=== PATIENT | female | born 1965 | race Caucasian/White ===

== ENCOUNTER 2018-09-28 09:50 | Day surgery (SDC) | payer OTHER, SELFPAY ==
[2018-09-28 10:42] VITALS: BP 111/77; PULSE 78; RESP 16; TEMP 37.1; O2SAT 100; BMI 26.6
[2018-09-28] MEDS: SODIUM CHLORIDE 0.9% 1,000 ML 200 ML IV (11:18)
--- NOTE | 2018-09-28 12:21 | PM.HP.1 ---
History of Present Illness Date Patient Seen: 09/28/18 Time Patient Seen: 12:09 Chief complaint: [id number] SCREENING COLONOSCOPY Narrative: The patient is woman here for screening colonoscopy. She has turned 52. No family history of colon cancer. No blood in her stool. Patient History Medical History (Updated 09/28/18 @ 12:23 by Sebastian Davila MD) Joon's thyroiditis (Chronic) Hypothyroid (Chronic) Surgical History (Updated 09/28/18 @ 12:24 by Sebastian Davila MD) H/O blepharoplasty (Resolved) Social History household members: none Family & Social History Social History: household members none Meds Home Medications Medication Instructions Recorded Confirmed Type Myrbetriq 50 mg PO DAILY #0 10/27/16 09/28/18 History [BCP] #0 10/27/16 History levothyroxine [Synthroid] 100 mcg PO DAILY #0 10/27/16 09/28/18 History bupropion HCl 300 mg PO QAM 09/28/18 09/28/18 History norethindrone ac-eth estradiol 1 tab PO DAILY 09/28/18 09/28/18 History [Loestrin 1.5/30 (21)] Allergies Allergy/AdvReac Type Severity Reaction Status Date / Time No Known Drug Allergies Allergy Verified 09/28/18 07:53 Review of Systems Review of Systems All systems reviewed & are unremarkable except as noted in HPI and below Exam Vital Signs (past 8 hours): - 09/28/18 10:42 Temperature 98.8 F Pulse Rate 78 Respiratory Rate 16 Blood Pressure 111/77 Pulse Oximetry 100 Oxygen Delivery Method Room Air Narrative Exam Narrative: Pleasant cooperative patient no apparent distress. Lungs are clear to auscultation. No rales or rhonchi. Heart regular rate and rhythm no murmur gallop. Abdomen is soft nontender without mass. No obvious hernias. Patient is alert and oriented x3. Assessment & Plan Assessment & Plan narrative: The patient for a screening colonoscopy. I have discussed the procedure with them. Risks of bleeding, perforation which would necessitate major operation, failure to find remove all lesions, the potential tattoo were all discussed. All questions were answered. She wished to proceed.
--- NOTE | 2018-09-28 12:24 | PM.PREOP ---
Pre-operative Note Interval Note History & Physical reviewed/Exam performed by Physician: Yes Changes to H&P: No ASA Class (for procedural sedation): II
[2018-09-28] MEDS: MIDAZOLAM 5 MG/5 ML VIAL IV (13:06)
[2018-09-28] MEDS: fentaNYL 250 MCG/5 ML INJ IV (13:07)
--- NOTE | 2018-09-28 13:15 | PM.OP.ENDO ---
Operative Date/Time/Diagnoses Date of procedure: 09/28/18 Time of procedure: 13:15 Pre-op diagnosis: Screening examination Post-op diagnosis: same (A few sigmoid diverticuli noted) Procedure & Clinicians Study performed: Colonoscopy Same procedure as scheduled: Yes Indications: Screening Surgeon: Sebastian Davila Procedure Notes SCOAP/Timeout: Performed Procedure in detail: The patient was placed in the left lateral decubitus position and underwent IV sedation directed by the surgeon consisting of fentanyl and Versed. Digital exam was normal. The scope was inserted and advanced through the rectum into the sigmoid, descending, transverse, and ascending colon. A few sigmoid diverticula were noted. There were minimal in number. The cecum was reached identified by the ileocecal valve and the appendiceal opening. The ileocecal valve was successfully cannulated. The terminal ileum was normal in appearance. The scope was gradually brought out. No Polyps were found. The scope ultimately was retroflexed in the rectum. The appearance was normal. The scope was removed and the patient tolerated the procedure well. Prep was excellent Scope withdrawal time: 8.5 minute Sedation minutes: 27 Findings: diverticulosis (A few sigmoid diverticuli) Specimen(s): none sent Complications: none Recommendations: Colonscopy in 10 years Follow up: as needed Disposition: PACU
[2018-09-28 13:17] VITALS: BP 102/62; PULSE 77; RESP 16; TEMP 36.8; O2SAT 98
[2018-09-28 13:22] VITALS: BP 105/64; PULSE 80; RESP 12; O2SAT 97
[2018-09-28 13:27] VITALS: BP 106/67; PULSE 79; RESP 14; TEMP 36.9; O2SAT 97
[2018-09-28 13:32] VITALS: BP 98/66; PULSE 78; RESP 15; TEMP 36.4; O2SAT 98
[2018-09-28 13:58] VITALS: BP 101/68; PULSE 62; RESP 15; TEMP 36.5; O2SAT 98
== END 2018-09-28 14:02 | disposition home or self-care (01) ==
PROVIDERS: PCP Nurse Practitioner Family; Visit Provider Specialist
PROC: 0DJD8ZZ Inspection of Lower Intestinal Tract, Via Natural or Artificial Opening Endoscopic (ICD-10-PCS; CPT 45378; principal; 2018-09-28 09:45)
DX: Z12.11 Encounter for screening for malignant neoplasm of colon (principal); K57.30 Diverticulosis of large intestine without perforation or abscess without bleeding; E06.3 Autoimmune thyroiditis
CPT/HCPCS: 45378; 99152; 99153; J2250; J3010

== ENCOUNTER → 2018-11-08 09:06 | Outpatient (CLI) | payer OTHER, SELFPAY ==
--- NOTE | 2018-11-08 | DI.MRI.S_ITS ---
PROCEDURE: MR HIP LT WO CON INDICATIONS: Pain in unspecified hip TECHNIQUE: Noncontrast coronal T1 spin echo and STIR through the bony pelvis. Coronal and axial T2 fast spin echo with fat saturation, sagittal T1 spin echo, and oblique axial T2 fast spin echo with fat saturation through the hip. COMPARISON: [facility], MR, MR HIP RT WO CON, 11/08/2018, 9:25. FINDINGS: Image quality: Diagnostic. Bones and joints: No acute fracture, dislocation, suspicious osseous lesion, or evidence of avascular necrosis is appreciated involving the osseous structures of the left hip. Mild degenerative changes of the left hip are present with heterogeneity and mild irregularity of the hyaline articular cartilage along the superior margin of the joint space. Mild degenerative cystic changes present along the anterior aspect of the femoral head. The alpha angle of the left femoral head measures less than 55?. There is a small hip effusion. The remainder of the imaged osseous structures of the pelvis demonstrate no fractures or suspicious abnormalities. Labrum: Evaluation of the left acetabular labrum is difficult without intra-articular contrast. No definitive labral tears are appreciated. No paravertebral cysts are identified. Tendons and ligaments: Marker partial-thickness tearing is present involving the distal left gluteus medius tendon. There is low-grade partial-thickness tearing involving the distal left gluteus minimus tendon. Moderate tendinopathy involving both tendons is present. There is a small amount of fluid contained within the subacromial subdeltoid bursa. There also is fluid extending along the gluteus medius myotendinous junction. The proximal left hamstrings tendons are within normal limits. The distal left iliopsoas tendons also are within normal limits. The ligamentum teres appears intact where visualized. Increased signal involving this ligament may represent a ligamentous sprain. Soft tissues: Visualized muscles demonstrate normal bulk and internal signal. Quadratus femoris muscle demonstrates no internal edema to suggest ischiofemoral impingement. The proximal sciatic neurovascular bundle appears normal adjacent to the hamstring tendons. No free pelvic fluid. Bladder wall thickness is normal. Genitourinary structures and bowel loops appear normal where visualized. Incidental note is made of small uterine fibroids, not well characterized. IMPRESSION: 1. Mild degenerative changes of the left hip. 2. Low to moderate grade partial-thickness tearing of the distal left gluteus medius and gluteus minimus tendons with corresponding tendinopathy. There may be mild delamination along the gluteus medius myotendinous junction. 3. Probable sprain of the ligamentum teres. 4. No displaced left acetabular labral tears. Dictated by: Italo Alberto M.D. on 11/08/2018 at 16:00 Approved by: Italo Alberto M.D. on 11/08/2018 at 16:10
--- NOTE | 2018-11-08 | DI.MRI.S_ITS ---
PROCEDURE: MR HIP RT WO CON INDICATIONS: Pain in unspecified hip TECHNIQUE: Noncontrast coronal T1 spin echo and STIR through the bony pelvis. Coronal and axial T2 fast spin echo with fat saturation, sagittal T1 spin echo, and oblique axial T2 fast spin echo with fat saturation through the hip. COMPARISON: None. FINDINGS: Image quality: Diagnostic. Bones and joints: No acute fracture, dislocation, or suspicious osseous lesion is identified involving the osseous structures of the right hip. There is no evidence of avascular necrosis. Irregularity of the hyaline articular cartilage along the superior margin of the joint space is present. There also is irregularity along the medial aspect of the femoral head articular surface with an area of cartilaginous fissuring. No large cartilaginous defects are identified. There is a small hip effusion. The alpha angle of the right femoral head measures less than 55?. The remainder of the included osseous structures of the pelvis demonstrate no fractures or suspicious osseous lesions. Labrum: Evaluation of the right acetabular labrum is difficult without intra-articular contrast. However, there is blunting along the free edge of the anterosuperior aspect of the labrum with increased signal at the expected location of the labral cartilaginous junction, suggesting a small anterosuperior labral tear likely extending from the 12 o'clock position to the 10 o'clock position. Additional heterogeneity through the posterosuperior labrum may represent additional areas of mild labral tearing. No detached labral fragments are appreciated. There are no paravertebral cysts. Tendons and ligaments: There is low-grade partial-thickness tearing and tendinopathy involving the distal margin of the right gluteus medius tendon. A similar appearance is identified involving the right gluteus minimus tendon. There is fluid contained within the greater trochanteric bursa. Increased signal is noted involving the proximal right hamstrings tendons. The distal iliopsoas tendons are intact and otherwise unremarkable. The ligamentum teres appears intact where visualized. Soft tissues: Visualized muscles demonstrate normal bulk and internal signal. Quadratus femoris muscle demonstrates no internal edema to suggest ischiofemoral impingement. The proximal sciatic neurovascular bundle appears normal adjacent to the hamstring tendons. No free pelvic fluid. Bladder wall thickness is normal. Genitourinary structures and bowel loops appear normal where visualized. Small uterine fibroids appear to be present, but are not well characterized along the anterior aspect of the myometrium. IMPRESSION: 1. Mild degenerative changes of the right hip. No fractures. 2. There is at least a small anterosuperior right acetabular labral tear. Additional posterosuperior labral tearing may be present. 3. Moderate grade partial-thickness tearing and tendinopathy involving the distal right gluteus medius and gluteus minimus tendons with corresponding tendinopathy and fluid contained within the greater trochanteric bursa. Please correlate clinically for possible greater trochanteric pain syndrome. 4. Mild proximal right hamstrings tendinopathy. Dictated by: Italo Alberto M.D. on 11/08/2018 at 15:51 Approved by: Italo Alberto M.D. on 11/08/2018 at 16:00
--- NOTE | 2018-11-08 | DI.MRI.S_ITS ---
PROCEDURE: MR PELVIS WO CON INDICATIONS: Pain in unspecified hip TECHNIQUE: Noncontrast axial and oblique coronal T1 spin echo and STIR through the sacroiliac joints. COMPARISON: None. FINDINGS: Image quality: Excellent. Bones: The sacroiliac joints appear intact, and free of inflammatory change. Note is made of lower lumbosacral spine moderate degenerative facet osteoarthritis with ligamentum flavum hypertrophy and bilateral mild to moderate foraminal stenosis at L4-5. A disc herniation is not associated.. There is also moderate facet osteoarthritis at L5-S1. No adjacent bone marrow edema to suggest active sacroiliitis. No bony ankylosis. No suspicious marrow space occupying lesions. Soft tissues: No presacral masses. Rectum appears normal in caliber and wall thickness. No pathologic free pelvic fluid. IMPRESSION: No trauma found. There is degenerative facet osteoarthritis that appears slightly greater on the left than the right at L4-5 and symmetric on the right in the left at L5-S1 without associated disc herniation. Nerve root impingement may be present as a result. No sacroiliac joint inflammation is present, there is no suspicion for underlying ankylosing spondylitis. Dictated by: Gucci Chávez M.D. on 11/08/2018 at 10:33 Approved by: Gucci Chávez M.D. on 11/08/2018 at 10:38
== END ==
PROVIDERS: PCP Nurse Practitioner Family; Visit Provider Physician Assistant
DX: M16.0 Bilateral primary osteoarthritis of hip (principal); M25.559 Pain in unspecified hip; S39.013A Strain of muscle, fascia and tendon of pelvis, initial encounter; S73.191A Other sprain of right hip, initial encounter; M67.951 Unspecified disorder of synovium and tendon, right thigh; M47.817 Spondylosis without myelopathy or radiculopathy, lumbosacral region; M48.061 Spinal stenosis, lumbar region without neurogenic claudication
CPT/HCPCS: 72195; 73721

== ENCOUNTER → 2019-11-11 09:19 | Outpatient (CLI) | payer OTHER, SELFPAY ==
--- NOTE | 2019-11-11 09:22 | DI.RAD.S_ITS ---
PROCEDURE: XR KNEE RT 3V INDICATIONS: 3 month hx R knee pain medial aspect since twisting injury TECHNIQUE: 3 views of the knee were acquired. COMPARISON: None. FINDINGS: Bones: No fractures or dislocations. No suspicious bony lesions. Minimal medial compartment narrowing. Soft tissues: No joint effusion. No suspicious soft tissue calcifications. IMPRESSION: Minimal medial compartment narrowing. Dictated by: Laurita Licona M.D. on 11/11/2019 at 17:24 Approved by: Laurita Licona M.D. on 11/11/2019 at 17:25
[2019-11-11 11:10] LABS: Hematocrit 41.2 % (36-46); Hemoglobin 14.1 g/dL (12.0-16.0); Mean Corpuscular HGB Conc 34.3 % (30-36); Mean Corpuscular Hemoglobin 29.8 PG (26-34); Platelet Count 291 X10^3/uL (150-400); Red Blood Cell Count 4.74 X10^6/uL (4.0-5.2); Red Cell Distribution Width 13.5 % (11.6-14.8); White Blood Cell Count 5.2 X10^3/uL (4.5-11.0)
[2019-11-11 11:43] LABS: Alanine Aminotransferase 23 IU/L (<35); Albumin Globulin Ratio 1.8 (1.0-2.8); Alkaline Phosphatase 82 U/L (38-126); Aspartate Aminotransferase 28 IU/L (14-36); BUN Creatinine Ratio 26.4 (6-22); Bilirubin Total 1.1 mg/dL (0.2-1.3); Blood Urea Nitrogen 24 mg/dL (7-17); Calcium 10.4 mg/dL (8.4-10.2); Carbon Dioxide 26 mmol/L (22-32); Chloride 108 mmol/L (98-107); Cholesterol 177 mg/dL (140-199); Estimated Glomerular Filt Rate > 60.0 mL/min (>60); Globulin 2.8 g/dL (1.7-4.1); Glucose 98 mg/dL (70-100); HDL Cholesterol 49 mg/dL (40-60); HEMOLYSIS < 15 (0-50); LDL Cholesterol Calculated 114 mg/dL (<100); Sodium 142 mmol/L (137-145); Total Protein 7.8 g/dL (6.3-8.2); Triglycerides 71 mg/dL (35-150)
[2019-11-11 12:10] LABS: TSH w/ Reflex to FT4 0.26 uIU/mL (0.47-4.68)
== END ==
PROVIDERS: PCP Registered Nurse Diabetes Educator; Referring Provider Registered Nurse Diabetes Educator; Visit Provider Registered Nurse Diabetes Educator
DX: S83.91XA Sprain of unspecified site of right knee, initial encounter (principal); M25.561 Pain in right knee; E03.9 Hypothyroidism, unspecified; E06.3 Autoimmune thyroiditis; X50.0XXA Overexertion from strenuous movement or load, initial encounter
CPT/HCPCS: 36415; 73562; 80053; 80061; 84439; 84443; 85027

== ENCOUNTER → 2019-12-28 11:03 | Outpatient (CLI) | payer OTHER, SELFPAY ==
[2019-12-28 12:22] LABS: Alanine Aminotransferase 19 IU/L (<35); Albumin 4.5 g/dL (3.5-5.0); Albumin Globulin Ratio 1.4 (1.0-2.8); Alkaline Phosphatase 74 U/L (38-126); Aspartate Aminotransferase 27 IU/L (14-36); Bilirubin Total 0.9 mg/dL (0.2-1.3); Blood Urea Nitrogen 24 mg/dL (7-17); Calcium 9.6 mg/dL (8.4-10.2); Carbon Dioxide 24 mmol/L (22-32); Chloride 108 mmol/L (98-107); Estimated Glomerular Filt Rate > 60.0 mL/min (>60); Globulin 3.2 g/dL (1.7-4.1); Glucose 100 mg/dL (70-100); HEMOLYSIS < 15 (0-50); Potassium 4.4 mmol/L (3.4-5.1); Sodium 139 mmol/L (137-145); Total Protein 7.7 g/dL (6.3-8.2)
[2019-12-28 12:52] LABS: TSH w/ Reflex to FT4 < 0.02 uIU/mL (0.47-4.68)
[2019-12-28 13:20] LABS: Free T4, Direct Thyroxine 1.56 ng/dL (0.78-2.19)
== END ==
PROVIDERS: PCP Registered Nurse Diabetes Educator; Referring Provider Registered Nurse Diabetes Educator; Visit Provider Registered Nurse Diabetes Educator
DX: E03.9 Hypothyroidism, unspecified (principal)
CPT/HCPCS: 36415; 80053; 84439; 84443

== ENCOUNTER → 2020-02-13 13:17 | Outpatient (CLI) | payer OTHER, SELFPAY ==
[2020-02-13 14:21] LABS: TSH w/ Reflex to FT4 < 0.02 uIU/mL (0.47-4.68)
[2020-02-13 18:16] LABS: Free T4, Direct Thyroxine 1.48 ng/dL (0.78-2.19)
== END ==
PROVIDERS: PCP Registered Nurse Diabetes Educator; Referring Provider Registered Nurse Diabetes Educator; Visit Provider Registered Nurse Diabetes Educator
DX: E06.3 Autoimmune thyroiditis (principal)
CPT/HCPCS: 36415; 84439; 84443

== ENCOUNTER → 2020-02-18 11:53 | Outpatient (CLI) | payer OTHER, SELFPAY ==
--- NOTE | 2020-02-18 11:54 | DI.RAD.S_ITS ---
PROCEDURE: XR TOE LT MIN 2V INDICATIONS: L 2nd toe deformity/pain TECHNIQUE: 3 views of the 2nd toe(s) acquired. COMPARISON: None. FINDINGS: Bones: No fractures or dislocations. No suspicious bony lesions. Prominent 1st MTP degenerative changes are present. Soft tissues: No suspicious soft tissue densities. IMPRESSION: No visualized acute fracture or dislocation. However, if clinical concern and/or pain persist, short interval imaging followup in 7-10 days is recommended, as occult injury cannot be definitively excluded. Dictated by: Laurita Licona M.D. on 02/18/2020 at 15:29 Approved by: Laurita Licona M.D. on 02/18/2020 at 15:29
== END ==
PROVIDERS: PCP Registered Nurse Diabetes Educator; Referring Provider Registered Nurse Diabetes Educator; Visit Provider Registered Nurse Diabetes Educator
DX: M79.675 Pain in left toe(s) (principal)
CPT/HCPCS: 73660

== ENCOUNTER → 2020-03-13 14:52 | Outpatient (CLI) | payer OTHER, SELFPAY ==
[2020-03-13 16:15] LABS: TSH w/ Reflex to FT4 0.12 uIU/mL (0.47-4.68)
[2020-03-13 16:40] LABS: Free T4, Direct Thyroxine 0.93 ng/dL (0.78-2.19)
== END ==
PROVIDERS: PCP Registered Nurse Diabetes Educator; Referring Provider Registered Nurse Diabetes Educator; Visit Provider Registered Nurse Diabetes Educator
DX: E03.9 Hypothyroidism, unspecified (principal)
CPT/HCPCS: 36415; 84439; 84443

== ENCOUNTER → 2020-11-02 09:20 | Outpatient (CLI) | payer OTHER, SELFPAY ==
--- NOTE | 2020-11-02 | DI.US.S_ITS ---
PROCEDURE: US PELVIC COMPLETE INDICATIONS: LOWER ABDOMINAL PAIN TECHNIQUE: Real-time scanning was performed of the pelvic organs, with image documentation. Additional endovaginal scanning was necessary due to incomplete visualization of the adnexal and endometrial structures by transabdominal scanning. COMPARISON: None. FINDINGS: Uterus: Uterus is normal in size at 6.4 x 3.8 x 3.2 cm. The endometrium measures 2-3 mm in combined thickness. Midline anterior intramural uterine fibroid measuring 1.2 x 1.1 x 1.1 cm. Ovaries: Right ovary measures 1.5 x 1.5 x 1.0 cm in the left ovary measures 2.0 x 1.5 x 0.7 cm. The ovaries are unremarkable bilaterally. Other: No pathologic free abdominal or pelvic fluid. IMPRESSION: 1.2 cm uterine fibroid. Normal sonographic appearance of the ovaries bilaterally Dictated by: Onel Arce M.D. on 11/02/2020 at 14:30 Approved by: Onel Arce M.D. on 11/02/2020 at 14:31
== END ==
PROVIDERS: PCP Internal Medicine; Referring Provider Internal Medicine; Visit Provider Internal Medicine
DX: R10.30 Lower abdominal pain, unspecified (principal); D25.1 Intramural leiomyoma of uterus
CPT/HCPCS: 76830; 76856

== ENCOUNTER 2021-06-03 15:15 | Outpatient (RCR) | payer OTHER, SELFPAY ==
--- NOTE | 2021-02-18 18:33 | PT.OIE ---
Current Diagnoses Personal history of malignant neoplasm of breast (02/18/21) Past Medical History (Last Reviewed 02/20/20 @ 07:17 by CLARA Reed) H/O blepharoplasty Joon's thyroiditis Hypothyroid Right knee sprain Toe pain Past Surgical History (Last Reviewed 02/20/20 @ 07:17 by CLARA Reed) H/O blepharoplasty Visit Care Team Role Provider Type Marilia Martinez MD Attending Provider Non-Staff Primary Care Provider Referring Provider Specialty: Internal Medicine Address: [address] [place] [address], [phone] Phone: Email: Physical Therapy Initial Evaluation PT-OP-A Visit Information Start: 02/18/21 14:02 Freq: Status: Active Protocol: Document 02/18/21 14:45 [facility] (Rec: 02/18/21 15:15 [facility] [id number]) Out-Patient Physical Therapy Visit Information Visit Information Visit Type Initial Evaluation Visit Start Time 14:45 Visit Stop Time 15:15 Total Visit Minutes 30 Visit Number 1 Evaluation Information Evaluation Date 02/18/21 PT-OP-B Current Condition Start: 02/18/21 14:02 Freq: Status: Active Protocol: Document 02/18/21 14:45 [facility] (Rec: 02/18/21 15:15 [facility] [id number]) Current Condition History of Current Condition Onset Date date of surgery 12/14/20 Current Complaints Decreased ROM L shoulder, pain History of Current Condition 55 year old female s/p left full mastectomy at [facility] with axial node dissections level 1 -2 and thoracic. Kathya reports she does not currently have any swelling into her arm but does report some swelling into the left axilla. She has pain from the shoulder to her elbow, leaning onto her elbow increases her pain, she is unable to sleep on the left side. Today was her first day of chemotherapy at [facility]. She will be on chemo for 7 months. Pt reports at [facility] she had the lympha procedure where they do microscopic bypasses to make drainage systems to decrease chances of lymphadema. She also has a manager data center put in for eventual breast reconstruction. Treatment Goals Patient/Caregiver Goals Kathya is a very active person, she would like more ROM and inceased strength. Current Functional Impairments (Reported) Functional Limitations- ADL's moderate difficulty with heavy house hold chores such as washing denton and floors, moderate difficulty carrying a shopping bag moderate difficulty reaching to wash her back Functional Limitations- Other pt reports it is difficult to lean onto the left arm or to sleep on the left side due to pain PT-OP-C Subjective Start: 02/18/21 14:02 Freq: Status: Active Protocol: Document 02/18/21 14:45 [facility] (Rec: 02/18/21 17:55 [facility] [id number]) Patient Questionnaires Quick Dash- Upper Extremity Quick Dash UE Impairment 20 to 39% Impaired (Score 20- 39) OP-PT Pain Assessment Pain Assessment Grid Paper Pain Assessment Grid Completed Yes: pt forgot to add in a number for pain on the grid Location left shoulder Pain Location Details left shoulder pain that radiates down the arm to the medial wrist Pain Aggravating Factors ADL's,Activity Home Pain Medication Use Pain Medications Used Yes Home Pain Medication Frequency Naproxin for pain in the evenings before bed PT-OP-J Posture/Palpation/Skin Start: 02/18/21 14:02 Freq: Status: Active Protocol: Document 02/18/21 14:45 [facility] (Rec: 02/18/21 18:01 [facility] [id number]) Posture Evaluation Position Sitting Shoulder Posture (L) Rounded,(L) Forward Comments Posture Comments pt has visable rounded shoulder on the left with tightness in her upper trapezius. She reports she finds herself rounding her shoulders as the manager data center that was put in on her left side was painful and if she rounded her shoulders it would take off the pain. She notes the pain from the manager data center is not as severe now so she thinks it has become a habit. Palpation Assessment Location left upper trapezius Palpation Location left upper trapezius Palpation Findings Soft Tissue Tightness,Spasm, Muscle Guarding left pec minor Palpation Location left pec minor Palpation Findings Soft Tissue Tightness,Muscle Guarding PT-OP-K Range of Motion Start: 02/18/21 14:02 Freq: Status: Active Protocol: Document 02/18/21 14:45 [facility] (Rec: 02/18/21 15:15 [facility] [id number]) Shoulder Goniometric Range of Motion Shoulder Left Shoulder ROM WFL No Testing Position Standing Flexion 115 Abduction 85 External Rotation at 90 degrees 25 Abduction External Rotation at 45 degrees 30 Abduction Internal Rotation Behind Back (text) T12 Comments These measurements are all AROM PROM is as follows: flexion 130, abduction to 130, ER to 35, IR to 45 with elbow at 45 degrees abduction Shoulder ROM Limitations Shoulder ROM Limitations Soft Tissue Tightness,Pain Comments Improved ROM with proper shoulder position and PROM vs AROM PT-OP-M Strength Start: 02/18/21 14:02 Freq: Status: Active Protocol: Document 02/18/21 14:45 [facility] (Rec: 02/18/21 18:29 [facility] [id number]) Shoulder Strength Shoulder Manual Muscle Testing Left Flexion 3 Fair Abduction (C5) 3 Fair External Rotation 5 Normal Internal Rotation 5 Normal Comments pt denies pain to resisted shoulder ER/IR, pain limits shoulder flexion and abduction for MMT PT-OP-Q Treatments Start: 02/18/21 14:02 Freq: Status: Active Protocol: Document 02/18/21 14:45 [facility] (Rec: 02/18/21 18:05 [facility] [id number]) Therapeutic Exercises Supine Exercises chest stretch over rolled up yoga mat Supine Exercise Name anterior chest stretch over rolled up yoga mat Side bilateral Comments pt to open up arms to comfort only with stretch shoulder ER stretch Supine Exercise Name L shoulder ER stretch with pillow supporting the left elbow Side left Comments pt to stretch to comfort only PT-OP-T Assessment and Plan Start: 02/18/21 14:02 Freq: Status: Active Protocol: Document 02/18/21 14:45 [facility] (Rec: 02/18/21 18:05 [facility] [id number]) Physical Therapy Assessment Rehab Potential Rehabilitation Potential Excellent Evaluation Complexity Number of Personal Factors/Comorbidities 0 Number of Body Systems Impaired 1-2 Clinical Presentation at Evaluation Stable Impairments Impairments Pain,Posture,ROM,Soft Tissue Mobility Goals improve postural habits to decrease strain on the left shoulder Impairment forward shoulder posture with pec minor and scar tissue tightness Wood Stock Blank Handler Goal (LTG) Kathya is able to improve her posture with stretches and manual therapy techniques decreasing tightness of the pec minor musculature. 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 She also has pain sleeping on her left shoulder at night Short Term Goal (STG) Kathya no longer complains of radiating symptoms down her left arm. 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 LTG Duration 8 weeks Assessment Summary Assessment Kathya is a 55 year old female referred to PT s/p left mastectomy 12/14/20 with chief complaint of left shoulder pain and decreased shoulder ROM. Her mastectomy included axial node dissections level 1-2 and thoracic. Her surgery was performed at [facility] and Kathya reports they used a technique called the lympha procedure to help avoid lymphadema. Kathya denies any c/o swelling into her arm today but does note some swelling into the axilla. Her shoulder pain radiates from her shoulder down to her medial wrist. Leaning onto her elbow and sleeping on her left side increase her pain and she has pain with carrying and lifting. Today was her first day of Chemotherapy and because chemo ran late she was late for her PT appointment. Not all of her tests and measures were able to be performed today so this eval is not fully complete and will require more tests and measurements next visit. With evaluation today Kathya is standing with the left shoulder rounded forward and visable tightness in her upper traps. She has painful and limted AROM but PROM is much more comfortable. I talked to her about her shoulder placement prior to lifting her arm up and she told me she had been bringing her shoulders forward due to pain from the breast manager data center. This pain has decreased now so she feels this has become a habit and it didn't hurt her breast to pull back her shoulder. I started her today with a gentle pec stretch in supine and the ROM that I did passively for her exam felt really good to her. I did no a median nerve test and this was negative with PROM but she may be experiencing some nerve symptoms with AROM. Circumferential measurements will be taken next visit. Kathya reports no swelling into her arm but does note some swelling in the axilla. Kathya is a good candidate for PT. Physical Therapy Plan Frequency and Duration Frequency of Treatment 2x/Week Duration of Treatment 8 Plan of Care Start Date 02/18/21 Plan of Care End Date 04/15/21 Therapeutic Interventions Therapeutic Interventions Home Exercise Program, Lymphedema Management,Manual Therapy,Neuromuscular Re- education,Self-Care/Home Management,Soft Tissue Mobilization,Therapeutic Exercises
--- NOTE | 2021-02-18 18:33 | PT.OPPOC ---
Physical, Occupational & Speech Therapy At [facility] Current Diagnoses Personal history of malignant neoplasm of breast (02/18/21) Visit Care Team Role Provider Type Marilia Martinez MD Attending Provider Non-Staff Primary Care Provider Referring Provider Specialty: Internal Medicine Address: [address] [place] [address], [id number] Phone: Email: Plan Of Care PT-OP-T Assessment and Plan Start: 02/18/21 14:02 Freq: Status: Active Protocol: Document 02/18/21 14:45 [facility] (Rec: 02/18/21 18:05 AMH [id number]) Physical Therapy Assessment Rehab Potential Rehabilitation Potential Excellent Evaluation Complexity Number of Personal Factors/Comorbidities 0 Number of Body Systems Impaired 1-2 Clinical Presentation at Evaluation Stable Impairments Impairments Pain,Posture,ROM,Soft Tissue Mobility Goals improve postural habits to decrease strain on the left shoulder Impairment forward shoulder posture with pec minor and scar tissue tightness Lump Receiver Goal (LTG) Kathya is able to improve her posture with stretches and manual therapy techniques decreasing tightness of the pec minor musculature. LTG Duration 8 weeks Improve full painfree AROM of the left shoulder Impairment Decreased shoulder AROM Correction Goal (LTG) Kathya demonstrates an improvement with AROM of the left shoulder without upper trapezius substitution LTG Duration 8 weeks Kathya reports overall decreased c/o left sided shoulder pain Impairment Left sided shoulder pain that radiates from the shoulder to the medial wrist and creates moderate difficulty with manager federal, carrying a shopping bag or having any pressure through her shoulder. She also has pain sleeping on her left shoulder at night Short Term Goal (STG) Kathya no longer complains of radiating symptoms down her left arm. STG Duration 4 weeks Correction Goal (LTG) Kathya reports a overall reduction in left shoulder pain and is able to sleep on her left side as well as reports mild difficulty with manager federal. LTG Duration 8 weeks Assessment Summary Assessment Kathya is a 55 year old female referred to PT s/p left mastectomy 12/14/20 with chief complaint of left shoulder pain and decreased shoulder ROM. Her mastectomy included axial node dissections level 1-2 and thoracic. Her surgery was performed at [facility] and Kathya reports they used a technique called the lympha procedure to help avoid lymphadema. Kathya denies any c/o swelling into her arm today but does note some swelling into the axilla. Her shoulder pain radiates from her shoulder down to her medial wrist. Leaning onto her elbow and sleeping on her left side increase her pain and she has pain with carrying and lifting. Today was her first day of Chemotherapy and because chemo ran late she was late for her PT appointment. Not all of her tests and measures were able to be performed today so this eval is not fully complete and will require more tests and measurements next visit. With evaluation today Kathya is standing with the left shoulder rounded forward and visible tightness in her upper traps. She has painful and limited AROM but PROM is much more comfortable. I talked to her about her shoulder placement prior to lifting her arm up and she told me she had been bringing her shoulders forward due to pain from the breast perl programmer. This pain has decreased now so she feels this has become a habit and it didn't hurt her breast to pull back her shoulder. I started her today with a gentle pec stretch in supine and the ROM that I did passively for her exam felt really good to her. I did no a median nerve test and this was negative with PROM but she may be experiencing some nerve symptoms with AROM. Circumferential measurements will be taken next visit. Kathya reports no swelling into her arm but does note some swelling in the axilla. Kathya is a good candidate for PT. Physical Therapy Plan Frequency and Duration Frequency of Treatment 2x/Week Duration of Treatment 8 Plan of Care Start Date 02/18/21 Plan of Care End Date 04/15/21 Therapeutic Interventions Therapeutic Interventions Home Exercise Program, Lymphedema Management,Manual Therapy,Neuromuscular Re- education,Self-Care/Home Management,Soft Tissue Mobilization,Therapeutic Exercises Plan of Care Dates Plan of Care Start Date 02/18/21 Plan of Care End Date 04/15/21 Electronically Signed by: Raquel Biswas, PT 02/18/21 1482 Please Sign and Return: I have reviewed this Plan of Care and certify that the skilled therapy services above are required to meet the patient?s needs. Physician Signature Date Printed Name and Credentials Clinical Instructor Signature Printed Name and Credentials
--- NOTE | 2021-02-22 17:09 | PT.OTN ---
Current Diagnoses Personal history of malignant neoplasm of breast (02/22/21) Physical Therapy Treatment Note PT-OP-A Visit Information Start: 02/18/21 14:02 Freq: Status: Active Protocol: Document 02/22/21 09:55 SAK (Rec: 02/22/21 10:31 SAK [id number]) Out-Patient Physical Therapy Visit Information Visit Information Visit Type Treatment Note Visit Note Had first chemo treatment, not sure if will have radiation. Visit Start Time 09:47 Visit Stop Time 14:30 Total Visit Minutes 43 Visit Number 2 Evaluation Information Evaluation Date 02/18/21 PT-OP-B Current Condition Start: 02/18/21 14:02 Freq: Status: Active Protocol: Document 02/22/21 09:55 SAK (Rec: 02/22/21 10:31 SAK [id number]) Current Condition History of Current Condition Onset Date date of surgery 12/14/20 Current Complaints Decreased ROM L shoulder, pain History of Current Condition 55 year old female s/p left full mastectomy at [facility] with axial node dissections level 1 -2 and thoracic. Kathya reports she does not currently have any swelling into her arm but does report some swelling into the left axilla. She has pain from the shoulder to her elbow, leaning onto her elbow increases her pain, she is unable to sleep on the left side. [facility] She will be on chemo for 7 months. Pt reports at [facility] she had the lympha procedure where they do microscopic bypasses to make drainage systems to decrease chances of lymphadema. She also has a director of financial aid put in for eventual breast reconstruction. PT-OP-C Subjective Start: 02/18/21 14:02 Freq: Status: Active Protocol: Document 02/22/21 09:47 SAK (Rec: 02/22/21 17:09 SAK [id number]) OP-PT Subjective Patient Comments Patient Comments Patient reports exercises given last session were helpful, feels more mobile with left shoulder out to the side. PT-OP-J Posture/Palpation/Skin Start: 02/18/21 14:02 Freq: Status: Active Protocol: Document 02/18/21 14:45 AMH (Rec: 02/18/21 18:01 AMH [id number]) Posture Evaluation Position Sitting Shoulder Posture (L) Rounded,(L) Forward Comments Posture Comments pt has visable rounded shoulder on the left with tightness in her upper trapezius. She reports she finds herself rounding her shoulders as the director of financial aid that was put in on her left side was painful and if she rounded her shoulders it would take off the pain. She notes the pain from the director of financial aid is not as severe now so she thinks it has become a habit. Palpation Assessment Location left upper trapezius Palpation Location left upper trapezius Palpation Findings Soft Tissue Tightness,Spasm, Muscle Guarding left pec minor Palpation Location left pec minor Palpation Findings Soft Tissue Tightness,Muscle Guarding PT-OP-K Range of Motion Start: 02/18/21 14:02 Freq: Status: Active Protocol: Document 02/18/21 14:45 AMH (Rec: 02/18/21 15:15 AMH [id number]) Shoulder Goniometric Range of Motion Shoulder Left Shoulder ROM WFL No Testing Position Standing Flexion 115 Abduction 85 External Rotation at 90 degrees 25 Abduction External Rotation at 45 degrees 30 Abduction Internal Rotation Behind Back (text) T12 Comments These measurements are all AROM PROM is as follows: flexion 130, abduction to 130, ER to 35, IR to 45 with elbow at 45 degrees abduction Shoulder ROM Limitations Shoulder ROM Limitations Soft Tissue Tightness,Pain Comments Improved ROM with proper shoulder position and PROM vs AROM PT-OP-M Strength Start: 02/18/21 14:02 Freq: Status: Active Protocol: Document 02/18/21 14:45 AMH (Rec: 02/18/21 18:29 AMH [id number]) Shoulder Strength Shoulder Manual Muscle Testing Left Flexion 3 Fair Abduction (C5) 3 Fair External Rotation 5 Normal Internal Rotation 5 Normal Comments pt denies pain to resisted shoulder ER/IR, pain limits shoulder flexion and abduction for MMT PT-OP-N Lymphedema Start: 02/22/21 16:42 Freq: Status: Active Protocol: Document 02/22/21 09:47 SAK (Rec: 02/22/21 17:09 SAK [id number]) Lymphedema Measurements Upper Extremity Circumference Measurements Left Affected MCP 19.6 cm Dorsum of Hand 20.5 cm Wrist 16.3 cm 10 cm From Wrist Crease 20.5 cm 15 cm From Wrist Crease 23.3 cm 20 cm From Wrist Crease 24.8 cm 25 cm From Wrist Crease 24.6 cm 30 cm From Wrist Crease 25.6 cm 35 cm From Wrist Crease 27.8 cm 40 cm From Wrist Crease 29.1 cm Axilla 43.8 cm - vertical at axilla Right Unaffected MCP 17.8 cm Dorsum of Hand 20.7 cm Wrist 16.2 cm 10 cm From Wrist Crease 19.8 cm 15 cm From Wrist Crease 23 cm 20 cm From Wrist Crease 24.8 cm 25 cm From Wrist Crease 24.9 cm 30 cm From Wrist Crease 24.9 cm 35 cm From Wrist Crease 27.5 cm 40 cm From Wrist Crease 29.5 cm Axilla 40 cm - Patient is right handed - vertical at axilla PT-OP-Q Treatments Start: 02/18/21 14:02 Freq: Status: Active Protocol: Document 02/22/21 09:47 FREDI (Rec: 02/22/21 17:09 [facility] [id number]) Therapeutic Exercises Supine Exercises shoulder flex Equipment Used wand Comments to comfort only Self-Care/Home Management Treatment Education Other Education -updated HEP with shoulder flex with wand Lymphedema Treatment Manual Lymphatic Drainage Comments brief instruction in rationale Lymphedema Wrapping Other patient advised to try wearing elasticized glove for gentle compression left hand, try gentle shapewear for subaxillary edema Patient Education Lymphedema Pathology initial review Compression Garments as above Other Given YouTube channel for [facility] for educational purposes PT-OP-T Assessment and Plan Start: 02/18/21 14:02 Freq: Status: Active Protocol: Document 02/22/21 09:47 FREDI (Rec: 02/22/21 17:09 SAK [id number]) Physical Therapy Assessment Goals swelling left axilla and hand with axillary cording Impairment lymphedema left UE in axilla with axillary cording from axilla to midway down inside left upper arm and evident in left hand Sales And Merchandising Associate Goal (LTG) Patient to demonstrate good understanding of lymphedema precautions and management to include skin care, self manual lymphatic drainage, sequential lymphedema exercises, and obtain appropriate compression garment(s) LTG Duration 8 weeks improve postural habits to decrease strain on the left shoulder Impairment forward shoulder posture with pec minor and scar tissue tightness Halfway Goal (LTG) Kathya is able to improve her posture with stretches and manual therapy techniques decreasing tightness of the pec minor musculature. LTG Duration 8 weeks Improve full painfree AROM of the left shoulder Impairment Decreased shoulder AROM Sales And Merchandising Associate Goal (LTG) Kathya demonstrates an improvement with AROM of the left shoulder witout upper trapezius substitution LTG Duration 8 weeks Kathya reports overall decreased c/o left sided shoulder pain Impairment Left sided shoulder pain that radiates from the shoulder to the medial wrist and creates moderate difficulty with systems tester, carrying a shopping bag or having any pressure through her shoulder. She also has pain sleeping on her left shoulder at night Short Term Goal (STG) Kathya no longer complains of radiating symptoms down her left arm. STG Duration 4 weeks Sales And Merchandising Associate Goal (LTG) Kathya reports a overall reduction in left shoulder pain and is able to sleep on her left side as well as reports mild difficulty with systems tester. LTG Duration 8 weeks Assessment Summary Assessment Evaluation continued today with circumferential measurements taken bilateral UE's. Swelling visibly evident in left hand and axilla with palpable axillary cording from left axilla to mid point of inner upper arm. Initial education regarding lymphedema management initiated, will need to continue as part of treatment plan. Added shoulder flexion with wand to HEP. Patient demonstrated good understanding of all. Physical Therapy Plan Frequency and Duration Frequency of Treatment 2x/Week Duration of Treatment 8 Plan of Care Start Date 02/18/21 Plan of Care End Date 04/15/21 Therapeutic Interventions Therapeutic Interventions Home Exercise Program, Lymphedema Management,Manual Therapy,Neuromuscular Re- education,Self-Care/Home Management,Soft Tissue Mobilization,Therapeutic Exercises Next Visit Focus/Plan Next Note Type Treatment Note Next Visit Plan Review HEP, assess ROM, continue lymphedema education, evaluate any compression being used by patient as discussed. Gentle manual treatment for scar and axillary cording mobilization, edema management. ROM and postural exercises, breathing exercises.
--- NOTE | 2021-03-01 13:34 | PT.OTN ---
Current Diagnoses Personal history of malignant neoplasm of breast (03/01/21) Physical Therapy Treatment Note PT-OP-A Visit Information Start: 02/18/21 14:02 Freq: Status: Active Protocol: Document 03/01/21 13:21 SAK (Rec: 03/01/21 13:33 SAK [id number]) Out-Patient Physical Therapy Visit Information Visit Information Visit Type Treatment Note Visit Note Patient 8 min late Visit Start Time 09:53 Visit Stop Time 10:32 Total Visit Minutes 39 Visit Number 3 Evaluation Information Evaluation Date 02/18/21 PT-OP-B Current Condition Start: 02/18/21 14:02 Freq: Status: Active Protocol: Document 03/01/21 13:21 SAK (Rec: 03/01/21 13:33 SAK [id number]) Current Condition History of Current Condition Onset Date date of surgery 12/14/20 Current Complaints Decreased ROM L shoulder, pain History of Current Condition 55 year old female s/p left full mastectomy at [facility] with axial node dissections level 1 -2 and thoracic. Kathya reports she does not currently have any swelling into her arm but does report some swelling into the left axilla. She has pain from the shoulder to her elbow, leaning onto her elbow increases her pain, she is unable to sleep on the left side. Today was her [facility]. She will be on chemo for 7 months. Pt reports at [facility] she had the lympha procedure where they do microscopic bypasses to make drainage systems to decrease chances of lymphadema. She also has a rn maternal child put in for eventual breast reconstruction. PT-OP-C Subjective Start: 02/18/21 14:02 Freq: Status: Active Protocol: Document 03/01/21 13:21 SAK (Rec: 03/01/21 13:34 SAK [id number]) OP-PT Subjective Patient Comments Patient Comments Patient reports she has been exploring compression options online, hasn't been satisfied with what she has ordered so far. Compliant to HEP, feels some improvement in ROM. Patient Reported Progress Improving PT-OP-J Posture/Palpation/Skin Start: 02/18/21 14:02 Freq: Status: Active Protocol: Document 02/18/21 14:45 AMH (Rec: 02/18/21 18:01 AMH [id number]) Posture Evaluation Position Sitting Shoulder Posture (L) Rounded,(L) Forward Comments Posture Comments pt has visable rounded shoulder on the left with tightness in her upper trapezius. She reports she finds herself rounding her shoulders as the rn maternal child that was put in on her left side was painful and if she rounded her shoulders it would take off the pain. She notes the pain from the rn maternal child is not as severe now so she thinks it has become a habit. Palpation Assessment Location left upper trapezius Palpation Location left upper trapezius Palpation Findings Soft Tissue Tightness,Spasm, Muscle Guarding left pec minor Palpation Location left pec minor Palpation Findings Soft Tissue Tightness,Muscle Guarding PT-OP-K Range of Motion Start: 02/18/21 14:02 Freq: Status: Active Protocol: Document 02/18/21 14:45 [facility] (Rec: 02/18/21 15:15 [facility] [id number]) Shoulder Goniometric Range of Motion Shoulder Left Shoulder ROM WFL No Testing Position Standing Flexion 115 Abduction 85 External Rotation at 90 degrees 25 Abduction External Rotation at 45 degrees 30 Abduction Internal Rotation Behind Back (text) T12 Comments These measurements are all AROM PROM is as follows: flexion 130, abduction to 130, ER to 35, IR to 45 with elbow at 45 degrees abduction Shoulder ROM Limitations Shoulder ROM Limitations Soft Tissue Tightness,Pain Comments Improved ROM with proper shoulder position and PROM vs AROM PT-OP-M Strength Start: 02/18/21 14:02 Freq: Status: Active Protocol: Document 02/18/21 14:45 AMH (Rec: 02/18/21 18:29 AMH [id number]) Shoulder Strength Shoulder Manual Muscle Testing Left Flexion 3 Fair Abduction (C5) 3 Fair External Rotation 5 Normal Internal Rotation 5 Normal Comments pt denies pain to resisted shoulder ER/IR, pain limits shoulder flexion and abduction for MMT PT-OP-N Lymphedema Start: 02/22/21 16:42 Freq: Status: Active Protocol: Document 03/01/21 13:21 SAK (Rec: 03/01/21 13:33 SAK [id number]) Lymphedema Measurements Upper Extremity Circumference Measurements Left Affected MCP 18.9 cm Dorsum of Hand 19.5 cm Wrist 16.4 cm 10 cm From Wrist Crease 19.3 cm 15 cm From Wrist Crease 22.8 cm 20 cm From Wrist Crease 24.2 cm 25 cm From Wrist Crease 24.2 cm 30 cm From Wrist Crease 25.2 cm 35 cm From Wrist Crease 26.2 cm 40 cm From Wrist Crease 28.1 cm Axilla 41.8 cm - vertical at axilla PT-OP-Q Treatments Start: 02/18/21 14:02 Freq: Status: Active Protocol: Document 03/01/21 13:21 [facility] (Rec: 03/01/21 13:33 [facility] [id number]) Therapeutic Exercises Sidelying Exercises circles Reps/Minutes 3x open book Reps/Minutes 5x Manual Therapy Treatment Soft Tissue Mobilization axillary cording Mobilization Type Sustained Pressure Intensity/Depth Moderate Body Position Hooklying Lymphedema Treatment Manual Lymphatic Drainage Location for left UE lymphedema Duration 6 min Comments iniated manual treatment, given information for [facility] [employer] channel for review Lymphedema Wrapping Other patient loaned Juzo gauntlet and sleeve 20-30 mm Hg; good fit on loaner garments. Patient to return once obtains garments for self. Patient Education Compression Garments loaner garments as above loaned to patient Self Manual Lymphatic Drainage given information for [employer] channel PT-OP-T Assessment and Plan Start: 02/18/21 14:02 Freq: Status: Active Protocol: Document 03/01/21 13:21 [facility] (Rec: 03/01/21 13:33 [facility] [id number]) Physical Therapy Assessment Goals swelling left axilla and hand with axillary cording Impairment lymphedema left UE in axilla with axillary cording from axilla to midway down inside left upper arm and evident in left hand Fdc Goal (LTG) Patient to demonstrate good understanding of lymphedema precautions and management to include skin care, self manual lymphatic drainage, sequential lymphedema exercises, and obtain appropriate compression garment(s) LTG Duration 8 weeks improve postural habits to decrease strain on the left shoulder Impairment forward shoulder posture with pec minor and scar tissue tightness Fdc Goal (LTG) Kathya is able to improve her posture with stretches and manual therapy techniques decreasing tightness of the pec minor musculature. LTG Duration 8 weeks Improve full painfree AROM of the left shoulder Impairment Decreased shoulder AROM Fdc Goal (LTG) Kathya demonstrates an improvement with AROM of the left shoulder witout upper trapezius substitution LTG Duration 8 weeks Kathya reports overall decreased c/o left sided shoulder pain Impairment Left sided shoulder pain that radiates from the shoulder to the medial wrist and creates moderate difficulty with tenterer, carrying a shopping bag or having any pressure through her shoulder. She also has pain sleeping on her left shoulder at night Short Term Goal (STG) Kathya no longer complains of radiating symptoms down her left arm. STG Duration 4 weeks Fdc Goal (LTG) Kathya reports a overall reduction in left shoulder pain and is able to sleep on her left side as well as reports mild difficulty with tenterer. LTG Duration 8 weeks Assessment Summary Assessment circumferential measurements decreased left UE, axillary cording still present. Noting some improvement in shoulder ROM. Patient has been exploring compression options online and given more information today. Demonstrated good understanding to new sidelying exercises. Patient liked pulleys for ROM. Physical Therapy Plan Frequency and Duration Frequency of Treatment 2x/Week Duration of Treatment 8 Plan of Care Start Date 02/18/21 Plan of Care End Date 04/15/21 Therapeutic Interventions Therapeutic Interventions Home Exercise Program, Lymphedema Management,Manual Therapy,Neuromuscular Re- education,Self-Care/Home Management,Soft Tissue Mobilization,Therapeutic Exercises Next Visit Focus/Plan Next Note Type Treatment Note Next Visit Plan Review HEP, assess ROM, continue lymphedema education, Gentle manual treatment for scar and axillary cording mobilization, edema management . ROM and postural exercises , breathing exercises. Issue informchantelleon for obtaining own pulleys for home use.
--- NOTE | 2021-03-03 13:25 | PT.OTN ---
Current Diagnoses Personal history of malignant neoplasm of breast (03/03/21) Physical Therapy Treatment Note PT-OP-A Visit Information Start: 02/18/21 14:02 Freq: Status: Active Protocol: Document 03/03/21 09:44 SAK (Rec: 03/03/21 10:26 SAK [id number]) Out-Patient Physical Therapy Visit Information Visit Information Visit Type Treatment Note Visit Note 9 min late Visit Start Time 09:52 Total Visit Minutes 38 Visit Number 4 Evaluation Information Evaluation Date 02/18/21 PT-OP-B Current Condition Start: 02/18/21 14:02 Freq: Status: Active Protocol: Document 03/03/21 09:44 SAK (Rec: 03/03/21 10:26 SAK [id number]) Current Condition History of Current Condition Onset Date date of surgery 12/14/20 Current Complaints Decreased ROM L shoulder, pain History of Current Condition 55 year old female s/p left full mastectomy at [facility] with axial node dissections level 1 -2 and thoracic. Kathya reports she does not currently have any swelling into her arm but does report some swelling into the left axilla. She has pain from the shoulder to her elbow, leaning onto her elbow increases her pain, she is unable to sleep on the left side. Today was her first day of chemotherapy at [facility]. She will be on chemo for 7 months. Pt reports at [facility] she had the lympha procedure where they do microscopic bypasses to make drainage systems to decrease chances of lymphadema. She also has a trackman put in for eventual breast reconstruction. PT-OP-C Subjective Start: 02/18/21 14:02 Freq: Status: Active Protocol: Document 03/03/21 09:44 SAK (Rec: 03/03/21 10:26 SAK [id number]) OP-PT Subjective Patient Comments Patient Comments Has ordered a compression sleeve and gauntlet, reports loaner feels good, will return to PT once receives own. Hasn't yet watched Cancer[facility]hab[facility] videos as recommended. PT-OP-J Posture/Palpation/Skin Start: 02/18/21 14:02 Freq: Status: Active Protocol: Document 02/18/21 14:45 [facility] (Rec: 02/18/21 18:01 [facility] [id number]) Posture Evaluation Position Sitting Shoulder Posture (L) Rounded,(L) Forward Comments Posture Comments pt has visable rounded shoulder on the left with tightness in her upper trapezius. She reports she finds herself rounding her shoulders as the trackman that was put in on her left side was painful and if she rounded her shoulders it would take off the pain. She notes the pain from the trackman is not as severe now so she thinks it has become a habit. Palpation Assessment Location left upper trapezius Palpation Location left upper trapezius Palpation Findings Soft Tissue Tightness,Spasm, Muscle Guarding left pec minor Palpation Location left pec minor Palpation Findings Soft Tissue Tightness,Muscle Guarding PT-OP-K Range of Motion Start: 02/18/21 14:02 Freq: Status: Active Protocol: Document 02/18/21 14:45 [facility] (Rec: 02/18/21 15:15 [facility] [id number]) Shoulder Goniometric Range of Motion Shoulder Left Shoulder ROM WFL No Testing Position Standing Flexion 115 Abduction 85 External Rotation at 90 degrees 25 Abduction External Rotation at 45 degrees 30 Abduction Internal Rotation Behind Back (text) T12 Comments These measurements are all AROM PROM is as follows: flexion 130, abduction to 130, ER to 35, IR to 45 with elbow at 45 degrees abduction Shoulder ROM Limitations Shoulder ROM Limitations Soft Tissue Tightness,Pain Comments Improved ROM with proper shoulder position and PROM vs AROM PT-OP-M Strength Start: 02/18/21 14:02 Freq: Status: Active Protocol: Document 02/18/21 14:45 [facility] (Rec: 02/18/21 18:29 [facility] [id number]) Shoulder Strength Shoulder Manual Muscle Testing Left Flexion 3 Fair Abduction (C5) 3 Fair External Rotation 5 Normal Internal Rotation 5 Normal Comments pt denies pain to resisted shoulder ER/IR, pain limits shoulder flexion and abduction for MMT PT-OP-N Lymphedema Start: 02/22/21 16:42 Freq: Status: Active Protocol: Document 03/03/21 09:44 SAK (Rec: 03/03/21 13:25 SAK [id number]) Lymphedema Measurements Upper Extremity Circumference Measurements Left Affected MCP 18.7 cm Dorsum of Hand 19.5 cm Wrist 16.4 cm 5 cm From Wrist Crease 18.8 cm 10 cm From Wrist Crease 22.4 cm 15 cm From Wrist Crease 23.5 cm 20 cm From Wrist Crease 23.8 cm 25 cm From Wrist Crease 24.9 cm 30 cm From Wrist Crease 26.7 cm 35 cm From Wrist Crease 27.8 cm Elbow Joint 41.1 cm PT-OP-Q Treatments Start: 02/18/21 14:02 Freq: Status: Active Protocol: Document 03/03/21 09:44 [facility] (Rec: 03/03/21 13:25 [facility] [id number]) Therapeutic Exercises Supine Exercises girl on the beach Reps/Minutes 5x, then 2x 30 sec hold Sitting Exercises pulleys Sitting Exercise Name shoulder flex and scaption Reps/Minutes 10x Comments cues for slow, to tolerance, end-range stretches Standing Exercises modfied downward dog Reps/Minutes 2x 10 Comments hands waist level holding onto bar, bent over with straight arms Manual Therapy Treatment Soft Tissue Mobilization axillary cording Mobilization Type Myofascial Release,Rolling, Sustained Pressure Intensity/Depth Moderate Body Position Hooklying Self-Care/Home Management Treatment Education Patient Education Home Exercise Program,Posture Other Education updated HEP with girl on the beach stretch encouraged to watch Cancer[facility]hab[facility] on YouTube videos Lymphedema Treatment Lymphedema Wrapping Other patient continues with use of loaner compression sleeve and gauntlet with good response. PT-OP-T Assessment and Plan Start: 02/18/21 14:02 Freq: Status: Active Protocol: Document 03/03/21 09:44 [facility] (Rec: 03/03/21 10:26 [facility] [id number]) Physical Therapy Assessment Goals swelling left axilla and hand with axillary cording Impairment lymphedema left UE in axilla with axillary cording from axilla to midway down inside left upper arm and evident in left hand Reel Worker Goal (LTG) Patient to demonstrate good understanding of lymphedema precautions and management to include skin care, self manual lymphatic drainage, sequential lymphedema exercises, and obtain appropriate compression garment(s) LTG Duration 8 weeks improve postural habits to decrease strain on the left shoulder Impairment forward shoulder posture with pec minor and scar tissue tightness Correction Goal (LTG) Kathya is able to improve her posture with stretches and manual therapy techniques decreasing tightness of the pec minor musculature. LTG Duration 8 weeks Improve full painfree AROM of the left shoulder Impairment Decreased shoulder AROM Correction Goal (LTG) Kathya demonstrates an improvement with AROM of the left shoulder witout upper trapezius substitution LTG Duration 8 weeks Kathya reports overall decreased c/o left sided shoulder pain Impairment Left sided shoulder pain that radiates from the shoulder to the medial wrist and creates moderate difficulty with manager publishing, carrying a shopping bag or having any pressure through her shoulder. She also has pain sleeping on her left shoulder at night Short Term Goal (STG) Kathya no longer complains of radiating symptoms down her left arm. STG Duration 4 weeks Correction Goal (LTG) Kathya reports a overall reduction in left shoulder pain and is able to sleep on her left side as well as reports mild difficulty with manager publishing. LTG Duration 8 weeks Assessment Summary Assessment Again reduction in circumferential measurements, shoulder ROM improving. Palpable pop during manual treatment of axillary cording, no pain. demonstrated good understanding of addition of girl on the beach stretch. Issued information about obtaining own pulleys for home use. Good progress Physical Therapy Plan Frequency and Duration Frequency of Treatment 2x/Week Duration of Treatment 8 Plan of Care Start Date 02/18/21 Plan of Care End Date 04/15/21 Therapeutic Interventions Therapeutic Interventions Home Exercise Program, Lymphedema Management,Manual Therapy,Neuromuscular Re- education,Self-Care/Home Management,Soft Tissue Mobilization,Therapeutic Exercises Next Visit Focus/Plan Next Note Type Treatment Note Next Visit Plan Continue with ROM and postural exercises, breathing exercises, manual treatment for scar and axillary cording mobilization. Measure shoulder ROM.
--- NOTE | 2021-03-08 16:28 | PT.OTN ---
Current Diagnoses Personal history of malignant neoplasm of breast (03/08/21) Physical Therapy Treatment Note PT-OP-A Visit Information Start: 02/18/21 14:02 Freq: Status: Active Protocol: Document 03/08/21 15:15 SAK (Rec: 03/08/21 16:22 SAK [id number]) Out-Patient Physical Therapy Visit Information Visit Information Visit Type Treatment Note Visit Start Time 15:15 Visit Stop Time 16:01 Total Visit Minutes 46 Visit Number 5 Evaluation Information Evaluation Date 02/18/21 PT-OP-B Current Condition Start: 02/18/21 14:02 Freq: Status: Active Protocol: Document 03/08/21 15:15 SAK (Rec: 03/08/21 16:22 SAK [id number]) Current Condition History of Current Condition Onset Date date of surgery 12/14/20 Current Complaints Decreased ROM L shoulder, pain History of Current Condition 55 year old female s/p left full mastectomy at [facility] with axial node dissections level 1 -2 and thoracic. Kathya reports she does not currently have any swelling into her arm but does report some swelling into the left axilla. She has pain from the shoulder to her elbow, leaning onto her elbow increases her pain, she is unable to sleep on the left side. Today was her first day of chemotherapy at [facility]. She will be on chemo for 7 months. Pt reports at [facility] she had the lympha procedure where they do microscopic bypasses to make drainage systems to decrease chances of lymphadema. She also has a railroad brakeman put in for eventual breast reconstruction. PT-OP-C Subjective Start: 02/18/21 14:02 Freq: Status: Active Protocol: Document 03/08/21 15:15 SAK (Rec: 03/08/21 16:22 SAK [id number]) OP-PT Subjective Patient Comments Patient Comments Received compression sleeve/ gauntlet combo 20-30mmHg Tonus Elast over shoulder and across chest strap. Unable to tolerate strap over chest so attaching to bra. Has obtained shapeware tanktop for subaxillary swelling, doesn' t feel that helpful. Has had 2nd chemo treatment, more nauseous this time. Hasn't done exercises as much due to busyness with family and work; doesn't feel she has progressed much with ROM since last seen in PT as a result. PT-OP-J Posture/Palpation/Skin Start: 02/18/21 14:02 Freq: Status: Active Protocol: Document 02/18/21 14:45 [facility] (Rec: 02/18/21 18:01 [facility] [id number]) Posture Evaluation Position Sitting Shoulder Posture (L) Rounded,(L) Forward Comments Posture Comments pt has visable rounded shoulder on the left with tightness in her upper trapezius. She reports she finds herself rounding her shoulders as the railroad brakeman that was put in on her left side was painful and if she rounded her shoulders it would take off the pain. She notes the pain from the railroad brakeman is not as severe now so she thinks it has become a habit. Palpation Assessment Location left upper trapezius Palpation Location left upper trapezius Palpation Findings Soft Tissue Tightness,Spasm, Muscle Guarding left pec minor Palpation Location left pec minor Palpation Findings Soft Tissue Tightness,Muscle Guarding PT-OP-K Range of Motion Start: 02/18/21 14:02 Freq: Status: Active Protocol: Document 02/18/21 14:45 [facility] (Rec: 02/18/21 15:15 [facility] [id number]) Shoulder Goniometric Range of Motion Shoulder Left Shoulder ROM WFL No Testing Position Standing Flexion 115 Abduction 85 External Rotation at 90 degrees 25 Abduction External Rotation at 45 degrees 30 Abduction Internal Rotation Behind Back (text) T12 Comments These measurements are all AROM PROM is as follows: flexion 130, abduction to 130, ER to 35, IR to 45 with elbow at 45 degrees abduction Shoulder ROM Limitations Shoulder ROM Limitations Soft Tissue Tightness,Pain Comments Improved ROM with proper shoulder position and PROM vs AROM PT-OP-M Strength Start: 02/18/21 14:02 Freq: Status: Active Protocol: Document 02/18/21 14:45 [facility] (Rec: 02/18/21 18:29 [facility] [id number]) Shoulder Strength Shoulder Manual Muscle Testing Left Flexion 3 Fair Abduction (C5) 3 Fair External Rotation 5 Normal Internal Rotation 5 Normal Comments pt denies pain to resisted shoulder ER/IR, pain limits shoulder flexion and abduction for MMT PT-OP-N Lymphedema Start: 02/22/21 16:42 Freq: Status: Active Protocol: Document 03/08/21 15:15 SAK (Rec: 03/08/21 16:22 SAK [id number]) Lymphedema Measurements Upper Extremity Circumference Measurements Left Affected MCP 18.7 cm Dorsum of Hand 16 cm Wrist 16.3 cm 10 cm From Wrist Crease 18.8 cm 15 cm From Wrist Crease 22.4 cm 20 cm From Wrist Crease 23.5 cm 25 cm From Wrist Crease 23.9 cm 30 cm From Wrist Crease 24.9 cm 35 cm From Wrist Crease 26.1 cm Axilla 38 cm PT-OP-Q Treatments Start: 02/18/21 14:02 Freq: Status: Active Protocol: Document 03/08/21 15:15 [facility] (Rec: 03/08/21 16:22 [facility] [id number]) Therapeutic Exercises Supine Exercises girl on the beach Reps/Minutes 5x, then 2x 30 sec hold Sidelying Exercises circles Reps/Minutes 5x open book Reps/Minutes 5x Sitting Exercises modified cat/cow Reps/Minutes 5x trunk rotation Sitting Exercise Name gentle yoga twist Comments hand to opposite knee, deep breathing shoulder rolls Reps/Minutes 5x jenn, 5x unil scapular squeezes Reps/Minutes 5x5 table slide Equipment Used 55 cm therapy ball Comments with cues for deep breathing pulleys Sitting Exercise Name shoulder flex and scaption Reps/Minutes 10x Comments cues for slow, to tolerance, end-range stretches, ball at mid thorax Manual Therapy Treatment Soft Tissue Mobilization axillary cording Mobilization Type Myofascial Release,Rolling, Sustained Pressure Intensity/Depth Moderate Body Position Hooklying Self-Care/Home Management Treatment Education Other Education work exercises into your day instead of feeling has to do exercise session Lymphedema Treatment Lymphedema Wrapping Other evaluation of compression sleeve fit; good fit, encouraged to make sure adjusts when slides down, use rubber gloves to assist, make sure up under axilla as able. Patient Education Compression Garments issued chip bag for subaxillary and lateral thorax edema PT-OP-T Assessment and Plan Start: 02/18/21 14:02 Freq: Status: Active Protocol: Document 03/08/21 15:15 [facility] (Rec: 03/08/21 16:22 [facility] [id number]) Physical Therapy Assessment Goals swelling left axilla and hand with axillary cording Impairment lymphedema left UE in axilla with axillary cording from axilla to midway down inside left upper arm and evident in left hand Penitentiary Goal (LTG) Patient to demonstrate good understanding of lymphedema precautions and management to include skin care, self manual lymphatic drainage, sequential lymphedema exercises, and obtain appropriate compression garment(s) LTG Duration 8 weeks improve postural habits to decrease strain on the left shoulder Impairment forward shoulder posture with pec minor and scar tissue tightness Penitentiary Goal (LTG) Kathya is able to improve her posture with stretches and manual therapy techniques decreasing tightness of the pec minor musculature. 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 She also has pain sleeping on her left shoulder at night Short Term Goal (STG) Kathya no longer complains of radiating symptoms down her left arm. 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 LTG Duration 8 weeks Progress Towards Goals Progress Towards Goals Progressing Toward Goals Assessment Summary Assessment 2 significant decreased areas of swelling; subaxillary, and hand, otherwise very stable. Patient compliant with use of compression sleeve and was issued a chip bag for use in subaxillary/lateral thoracic region. Decreased compliance to HEP evident. Axillary cording reduced but still present. Left shoulder flexion to 135 today. Physical Therapy Plan Frequency and Duration Frequency of Treatment 2x/Week Duration of Treatment 8 weeks Plan of Care Start Date 02/18/21 Plan of Care End Date 04/15/21 Therapeutic Interventions Therapeutic Interventions Home Exercise Program, Lymphedema Management,Manual Therapy,Neuromuscular Re- education,Self-Care/Home Management,Soft Tissue Mobilization,Therapeutic Exercises Next Visit Focus/Plan Next Note Type Treatment Note Next Visit Plan Continue with ROM and postural exercises, breathing exercises, manual treatment for scar and axillary cording mobilization. MLD for lateral thorax. Measure shoulder ROM . Issue written handout for table slide with therapy ball ex.
--- NOTE | 2021-03-09 16:25 | PT.OTN ---
Current Diagnoses Personal history of malignant neoplasm of breast (03/09/21) Physical Therapy Treatment Note PT-OP-A Visit Information Start: 02/18/21 14:02 Freq: Status: Active Protocol: Document 03/09/21 15:15 [facility] (Rec: 03/09/21 16:23 [facility] [id number]) Out-Patient Physical Therapy Visit Information Visit Information Visit Type Treatment Note Visit Start Time 15:15 Visit Stop Time 16:00 Total Visit Minutes 45 Visit Number 6 PT-OP-B Current Condition Start: 02/18/21 14:02 Freq: Status: Active Protocol: Document 03/08/21 15:15 SAK (Rec: 03/08/21 16:22 SAK [id number]) Current Condition History of Current Condition Onset Date date of surgery 12/14/20 Current Complaints Decreased ROM L shoulder, pain History of Current Condition 55 year old female s/p left full mastectomy at [facility] with axial node dissections level 1 -2 and thoracic. Kathya reports she does not currently have any swelling into her arm but does report some swelling into the left axilla. She has pain from the shoulder to her elbow, leaning onto her elbow increases her pain, she is unable to sleep on the left side. Today was her first day of chemotherapy at [facility]. She will be on chemo for 7 months. Pt reports at [facility] she had the lympha procedure where they do microscopic bypasses to make drainage systems to decrease chances of lymphadema. She also has a contact lens polisher put in for eventual breast reconstruction. PT-OP-C Subjective Start: 02/18/21 14:02 Freq: Status: Active Protocol: Document 03/09/21 15:15 [facility] (Rec: 03/09/21 15:23 [facility] [id number]) OP-PT Subjective Patient Comments Patient Comments pt reports the manual work yesterday was good, she had to drive to [place] and does feel tighter today. Her appointment was with her surgeon today and she really wanted her to work on that PT-OP-J Posture/Palpation/Skin Start: 02/18/21 14:02 Freq: Status: Active Protocol: Document 02/18/21 14:45 [facility] (Rec: 02/18/21 18:01 [facility] [id number]) Posture Evaluation Position Sitting Shoulder Posture (L) Rounded,(L) Forward Comments Posture Comments pt has visable rounded shoulder on the left with tightness in her upper trapezius. She reports she finds herself rounding her shoulders as the contact lens polisher that was put in on her left side was painful and if she rounded her shoulders it would take off the pain. She notes the pain from the contact lens polisher is not as severe now so she thinks it has become a habit. Palpation Assessment Location left upper trapezius Palpation Location left upper trapezius Palpation Findings Soft Tissue Tightness,Spasm, Muscle Guarding left pec minor Palpation Location left pec minor Palpation Findings Soft Tissue Tightness,Muscle Guarding PT-OP-K Range of Motion Start: 02/18/21 14:02 Freq: Status: Active Protocol: Document 02/18/21 14:45 [facility] (Rec: 02/18/21 15:15 [facility] [id number]) Shoulder Goniometric Range of Motion Shoulder Left Shoulder ROM WFL No Testing Position Standing Flexion 115 Abduction 85 External Rotation at 90 degrees 25 Abduction External Rotation at 45 degrees 30 Abduction Internal Rotation Behind Back (text) T12 Comments These measurements are all AROM PROM is as follows: flexion 130, abduction to 130, ER to 35, IR to 45 with elbow at 45 degrees abduction Shoulder ROM Limitations Shoulder ROM Limitations Soft Tissue Tightness,Pain Comments Improved ROM with proper shoulder position and PROM vs AROM PT-OP-M Strength Start: 02/18/21 14:02 Freq: Status: Active Protocol: Document 02/18/21 14:45 [facility] (Rec: 02/18/21 18:29 [facility] [id number]) Shoulder Strength Shoulder Manual Muscle Testing Left Flexion 3 Fair Abduction (C5) 3 Fair External Rotation 5 Normal Internal Rotation 5 Normal Comments pt denies pain to resisted shoulder ER/IR, pain limits shoulder flexion and abduction for MMT PT-OP-N Lymphedema Start: 02/22/21 16:42 Freq: Status: Active Protocol: Document 03/08/21 15:15 [facility] (Rec: 03/08/21 16:22 SAK [id number]) Lymphedema Measurements Upper Extremity Circumference Measurements Left Affected MCP 18.7 cm Dorsum of Hand 16 cm Wrist 16.3 cm 10 cm From Wrist Crease 18.8 cm 15 cm From Wrist Crease 22.4 cm 20 cm From Wrist Crease 23.5 cm 25 cm From Wrist Crease 23.9 cm 30 cm From Wrist Crease 24.9 cm 35 cm From Wrist Crease 26.1 cm Axilla 38 cm PT-OP-Q Treatments Start: 02/18/21 14:02 Freq: Status: Active Protocol: Document 03/09/21 15:15 [facility] (Rec: 03/09/21 16:23 [facility] [id number]) Manual Therapy Treatment Soft Tissue Mobilization scar tissue release in the axilla Body Location left axilla MFR of the pec minor and subscapularis Body Location left pec minor and subscapularis Comments pt tolerated MFR well, her ER inproving with pec minor release Joint Mobilizations gentle posterior capsule shoulder stretch Joint left shoulder Direction posterior glides Grade II Manual Techniques sidelying scapular mobilizations Comments with end range stretch of the shoulder, scapual prrtraction/ retraction PT-OP-T Assessment and Plan Start: 02/18/21 14:02 Freq: Status: Active Protocol: Document 03/09/21 15:15 [facility] (Rec: 03/09/21 16:23 [facility] [id number]) Physical Therapy Assessment Assessment Summary Assessment pt saw her surgeon today who told her to keep going with her PT. She tolerated last treatment well of working on her cording. Today's treatment focused on MFR, scapular and shoulder mobility . Physical Therapy Plan Frequency and Duration Frequency of Treatment 2x/Week Duration of Treatment 8 weeks Plan of Care Start Date 02/18/21 Plan of Care End Date 04/15/21 Therapeutic Interventions Therapeutic Interventions Home Exercise Program, Lymphedema Management,Manual Therapy,Neuromuscular Re- education,Self-Care/Home Management,Soft Tissue Mobilization,Therapeutic Exercises Next Visit Focus/Plan Next Note Type Treatment Note Next Visit Plan Continue with ROM and postural exercises, breathing exercises, manual treatment for scar and axillary cording mobilization. MLD for lateral thorax. Measure shoulder ROM . Issue written handout for table slide with therapy ball ex.
--- NOTE | 2021-03-16 17:15 | PT.OTN ---
Current Diagnoses Personal history of malignant neoplasm of breast (03/16/21) Physical Therapy Treatment Note PT-OP-A Visit Information Start: 02/18/21 14:02 Freq: Status: Active Protocol: Document 03/16/21 15:22 [facility] (Rec: 03/16/21 15:25 [facility] [id number]) Out-Patient Physical Therapy Visit Information Visit Information Visit Type Treatment Note Visit Start Time 15:20 Visit Stop Time 16:05 Total Visit Minutes 45 Visit Number 7 PT-OP-B Current Condition Start: 02/18/21 14:02 Freq: Status: Active Protocol: Document 03/08/21 15:15 [facility] (Rec: 03/08/21 16:22 [facility] [id number]) Current Condition History of Current Condition Onset Date date of surgery 12/14/20 Current Complaints Decreased ROM L shoulder, pain History of Current Condition 55 year old female s/p left full mastectomy at [facility] with axial node dissections level 1 -2 and thoracic. Kathya reports she does not currently have any swelling into her arm but does report some swelling into the left axilla. She has pain from the shoulder to her elbow, leaning onto her elbow increases her pain, she is unable to sleep on the left side. Today was her first day of chemotherapy at [facility]. She will be on chemo for 7 months. Pt reports at [facility] she had the lympha procedure where they do microscopic bypasses to make drainage systems to decrease chances of lymphadema. She also has a excelsior machine tender put in for eventual breast reconstruction. PT-OP-C Subjective Start: 02/18/21 14:02 Freq: Status: Active Protocol: Document 03/16/21 15:22 [facility] (Rec: 03/16/21 15:25 [facility] [id number]) OP-PT Subjective Patient Comments Patient Comments pt reports she did well with last visit she has been working on her stretches a lot more PT-OP-J Posture/Palpation/Skin Start: 02/18/21 14:02 Freq: Status: Active Protocol: Document 02/18/21 14:45 [facility] (Rec: 02/18/21 18:01 [facility] [id number]) Posture Evaluation Position Sitting Shoulder Posture (L) Rounded,(L) Forward Comments Posture Comments pt has visable rounded shoulder on the left with tightness in her upper trapezius. She reports she finds herself rounding her shoulders as the excelsior machine tender that was put in on her left side was painful and if she rounded her shoulders it would take off the pain. She notes the pain from the excelsior machine tender is not as severe now so she thinks it has become a habit. Palpation Assessment Location left upper trapezius Palpation Location left upper trapezius Palpation Findings Soft Tissue Tightness,Spasm, Muscle Guarding left pec minor Palpation Location left pec minor Palpation Findings Soft Tissue Tightness,Muscle Guarding PT-OP-K Range of Motion Start: 02/18/21 14:02 Freq: Status: Active Protocol: Document 02/18/21 14:45 [facility] (Rec: 02/18/21 15:15 [facility] [id number]) Shoulder Goniometric Range of Motion Shoulder Left Shoulder ROM WFL No Testing Position Standing Flexion 115 Abduction 85 External Rotation at 90 degrees 25 Abduction External Rotation at 45 degrees 30 Abduction Internal Rotation Behind Back (text) T12 Comments These measurements are all AROM PROM is as follows: flexion 130, abduction to 130, ER to 35, IR to 45 with elbow at 45 degrees abduction Shoulder ROM Limitations Shoulder ROM Limitations Soft Tissue Tightness,Pain Comments Improved ROM with proper shoulder position and PROM vs AROM PT-OP-M Strength Start: 02/18/21 14:02 Freq: Status: Active Protocol: Document 02/18/21 14:45 [facility] (Rec: 02/18/21 18:29 [facility] [id number]) Shoulder Strength Shoulder Manual Muscle Testing Left Flexion 3 Fair Abduction (C5) 3 Fair External Rotation 5 Normal Internal Rotation 5 Normal Comments pt denies pain to resisted shoulder ER/IR, pain limits shoulder flexion and abduction for MMT PT-OP-N Lymphedema Start: 02/22/21 16:42 Freq: Status: Active Protocol: Document 03/08/21 15:15 [facility] (Rec: 03/08/21 16:22 [facility] [id number]) Lymphedema Measurements Upper Extremity Circumference Measurements Left Affected MCP 18.7 cm Dorsum of Hand 16 cm Wrist 16.3 cm 10 cm From Wrist Crease 18.8 cm 15 cm From Wrist Crease 22.4 cm 20 cm From Wrist Crease 23.5 cm 25 cm From Wrist Crease 23.9 cm 30 cm From Wrist Crease 24.9 cm 35 cm From Wrist Crease 26.1 cm Axilla 38 cm PT-OP-Q Treatments Start: 02/18/21 14:02 Freq: Status: Active Protocol: Document 03/16/21 15:20 [facility] (Rec: 03/16/21 17:14 [facility] [id number]) Manual Therapy Treatment Soft Tissue Mobilization scar tissue release in the axilla Body Location left axilla MFR of the pec minor and subscapularis Body Location left pec minor and subscapularis Comments pt tolerated MFR well, her ER inproving with pec minor release Joint Mobilizations gentle posterior capsule shoulder stretch Joint left shoulder Direction posterior glides Grade II Manual Techniques sidelying scapular mobilizations Comments with end range stretch of the shoulder, scapual prrtraction/ retraction PT-OP-T Assessment and Plan Start: 02/18/21 14:02 Freq: Status: Active Protocol: Document 03/16/21 15:20 [facility] (Rec: 03/16/21 17:14 [facility] [id number]) Physical Therapy Assessment Assessment Summary Assessment posture is improving and Kathya has been working on her shoulder andreas at home as well as pec minor stretches. Kathya is no longer substituting with her upper trap for shoulder flexion. I encouraged her to start gentle scar tissue massage over the scar in her axilla. Physical Therapy Plan Frequency and Duration Frequency of Treatment 2x/Week Duration of Treatment 8 weeks Plan of Care Start Date 02/18/21 Plan of Care End Date 04/15/21 Therapeutic Interventions Therapeutic Interventions Home Exercise Program, Lymphedema Management,Manual Therapy,Neuromuscular Re- education,Self-Care/Home Management,Soft Tissue Mobilization,Therapeutic Exercises Next Visit Focus/Plan Next Note Type Treatment Note Next Visit Plan Continue with ROM and postural exercises, breathing exercises, manual treatment for scar and axillary cording mobilization. MLD for lateral thorax. Measure shoulder ROM . Issue written handout for table slide with therapy ball ex.
--- NOTE | 2021-03-18 17:28 | PT.OTN ---
Current Diagnoses Personal history of malignant neoplasm of breast (03/18/21) Physical Therapy Treatment Note PT-OP-A Visit Information Start: 02/18/21 14:02 Freq: Status: Active Protocol: Document 03/18/21 17:19 [facility] (Rec: 03/18/21 17:27 [facility] [id number]) Out-Patient Physical Therapy Visit Information Visit Information Visit Type Treatment Note Visit Start Time 15:15 Visit Stop Time 16:00 Total Visit Minutes 45 Visit Number 8 PT-OP-B Current Condition Start: 02/18/21 14:02 Freq: Status: Active Protocol: Document 03/08/21 15:15 [facility] (Rec: 03/08/21 16:22 [facility] [id number]) Current Condition History of Current Condition Onset Date date of surgery 12/14/20 Current Complaints Decreased ROM L shoulder, pain History of Current Condition 55 year old female s/p left full mastectomy at [facility] with axial node dissections level 1 -2 and thoracic. Kathya reports she does not currently have any swelling into her arm but does report some swelling into the left axilla. She has pain from the shoulder to her elbow, leaning onto her elbow increases her pain, she is unable to sleep on the left side. Today was her first day of [facility]. She will be on chemo for 7 months. Pt reports at [facility] she had the lympha procedure where they do microscopic bypasses to make drainage systems to decrease chances of lymphadema. She also has a continuous improvement coordinator put in for eventual breast reconstruction. PT-OP-C Subjective Start: 02/18/21 14:02 Freq: Status: Active Protocol: Document 03/18/21 17:19 [facility] (Rec: 03/18/21 17:27 [facility] [id number]) OP-PT Subjective Patient Comments Patient Comments Kathya reports she purchased a gusha for home scar tissue use but hasn't tried it yet. PT-OP-J Posture/Palpation/Skin Start: 02/18/21 14:02 Freq: Status: Active Protocol: Document 02/18/21 14:45 [facility] (Rec: 02/18/21 18:01 [facility] [id number]) Posture Evaluation Position Sitting Shoulder Posture (L) Rounded,(L) Forward Comments Posture Comments pt has visable rounded shoulder on the left with tightness in her upper trapezius. She reports she finds herself rounding her shoulders as the continuous improvement coordinator that was put in on her left side was painful and if she rounded her shoulders it would take off the pain. She notes the pain from the continuous improvement coordinator is not as severe now so she thinks it has become a habit. Palpation Assessment Location left upper trapezius Palpation Location left upper trapezius Palpation Findings Soft Tissue Tightness,Spasm, Muscle Guarding left pec minor Palpation Location left pec minor Palpation Findings Soft Tissue Tightness,Muscle Guarding PT-OP-K Range of Motion Start: 02/18/21 14:02 Freq: Status: Active Protocol: Document 02/18/21 14:45 [facility] (Rec: 02/18/21 15:15 [facility] [id number]) Shoulder Goniometric Range of Motion Shoulder Left Shoulder ROM WFL No Testing Position Standing Flexion 115 Abduction 85 External Rotation at 90 degrees 25 Abduction External Rotation at 45 degrees 30 Abduction Internal Rotation Behind Back (text) T12 Comments These measurements are all AROM PROM is as follows: flexion 130, abduction to 130, ER to 35, IR to 45 with elbow at 45 degrees abduction Shoulder ROM Limitations Shoulder ROM Limitations Soft Tissue Tightness,Pain Comments Improved ROM with proper shoulder position and PROM vs AROM PT-OP-M Strength Start: 02/18/21 14:02 Freq: Status: Active Protocol: Document 02/18/21 14:45 [facility] (Rec: 02/18/21 18:29 [facility] [id number]) Shoulder Strength Shoulder Manual Muscle Testing Left Flexion 3 Fair Abduction (C5) 3 Fair External Rotation 5 Normal Internal Rotation 5 Normal Comments pt denies pain to resisted shoulder ER/IR, pain limits shoulder flexion and abduction for MMT PT-OP-N Lymphedema Start: 02/22/21 16:42 Freq: Status: Active Protocol: Document 03/08/21 15:15 [facility] (Rec: 03/08/21 16:22 [facility] [id number]) Lymphedema Measurements Upper Extremity Circumference Measurements Left Affected MCP 18.7 cm Dorsum of Hand 16 cm Wrist 16.3 cm 10 cm From Wrist Crease 18.8 cm 15 cm From Wrist Crease 22.4 cm 20 cm From Wrist Crease 23.5 cm 25 cm From Wrist Crease 23.9 cm 30 cm From Wrist Crease 24.9 cm 35 cm From Wrist Crease 26.1 cm Axilla 38 cm PT-OP-Q Treatments Start: 02/18/21 14:02 Freq: Status: Active Protocol: Document 03/18/21 17:19 [facility] (Rec: 03/18/21 17:27 [facility] [id number]) Therapeutic Exercises Standing Exercises standing shoulder flexion rolling the foam roll up wall Reps/Minutes x 10 reps Other Exercises quadruped thoracic rotation Reps/Minutes x 5 reps each side tisha pose with lat stretch Reps/Minutes hold 1-2 min Manual Therapy Treatment Soft Tissue Mobilization scar tissue release in the axilla Body Location left axilla Comments gusha was used over the axillary scar as well as over the anterior chest MFR of the pec minor and subscapularis Body Location left pec minor and subscapularis Comments pt tolerated MFR well, her ER inproving with pec minor release Joint Mobilizations gentle posterior capsule shoulder stretch Joint left shoulder Direction posterior glides Grade II PT-OP-T Assessment and Plan Start: 02/18/21 14:02 Freq: Status: Active Protocol: Document 03/18/21 17:19 [facility] (Rec: 03/18/21 17:27 [facility] [id number]) Physical Therapy Assessment Goals Improve full painfree AROM of the left shoulder Impairment Decreased shoulder AROM [facility] Goal (LTG) Kathya demonstrates an improvement with AROM of the left shoulder witout upper trapezius substitution as of 03/18/21 there is decreased upper trapezius substitution, shoulder flexion to 160, abduction to 110, ER to 75 Assessment Summary Assessment Kathya is able to take weight through her left UE and we practiced quadruped position for thoracic rotations. She was able to take the weight through her left arm while rotating with the right. She has a gusha now for home for scar tissue release and we went over how to use it today. Physical Therapy Plan Frequency and Duration Frequency of Treatment 2x/Week Duration of Treatment 8 weeks Plan of Care Start Date 02/18/21 Plan of Care End Date 04/15/21 Therapeutic Interventions Therapeutic Interventions Home Exercise Program, Lymphedema Management,Manual Therapy,Neuromuscular Re- education,Self-Care/Home Management,Soft Tissue Mobilization,Therapeutic Exercises Next Visit Focus/Plan Next Note Type Treatment Note Next Visit Plan Continue with ROM and postural exercises, breathing exercises, manual treatment for scar and axillary cording mobilization. MLD for lateral thorax., postural exercises and shoulder ROM measurements
--- NOTE | 2021-03-22 16:52 | PT.OTN ---
Current Diagnoses Personal history of malignant neoplasm of breast (03/22/21) Physical Therapy Treatment Note PT-OP-A Visit Information Start: 02/18/21 14:02 Freq: Status: Active Protocol: Document 03/22/21 16:45 [facility] (Rec: 03/22/21 16:52 [facility] [id number]) Out-Patient Physical Therapy Visit Information Visit Information Visit Type Treatment Note Visit Start Time 09:00 Visit Stop Time 09:45 Total Visit Minutes 45 Visit Number 9 PT-OP-B Current Condition Start: 02/18/21 14:02 Freq: Status: Active Protocol: Document 03/08/21 15:15 [facility] (Rec: 03/08/21 16:22 [facility] [id number]) Current Condition History of Current Condition Onset Date date of surgery 12/14/20 Current Complaints Decreased ROM L shoulder, pain History of Current Condition 55 year old female s/p left full mastectomy at [facility] with axial node dissections level 1 -2 and thoracic. Kathya reports she does not currently have any swelling into her arm but does report some swelling into the left axilla. She has pain from the shoulder to her elbow, leaning onto her elbow increases her pain, she is unable to sleep on the left side. Today was her first day of chemotherapy at [facility]. She will be on chemo for 7 months. Pt reports at [facility] she had the lympha procedure where they do microscopic bypasses to make drainage systems to decrease chances of lymphadema. She also has a shore worker put in for eventual breast reconstruction. PT-OP-C Subjective Start: 02/18/21 14:02 Freq: Status: Active Protocol: Document 03/22/21 16:45 [facility] (Rec: 03/22/21 16:52 [facility] [id number]) OP-PT Subjective Patient Comments Patient Comments Reports very stiff and sore after last PT session, hasn't done scar tissue massage, but has used Gale roller for lymphatic-type massage. Feels hand is bigger. Not wearing compression to PT. Reports feeling breast shore worker is cause of some of tightness PT-OP-J Posture/Palpation/Skin Start: 02/18/21 14:02 Freq: Status: Active Protocol: Document 02/18/21 14:45 [facility] (Rec: 02/18/21 18:01 [facility] [id number]) Posture Evaluation Position Sitting Shoulder Posture (L) Rounded,(L) Forward Comments Posture Comments pt has visable rounded shoulder on the left with tightness in her upper trapezius. She reports she finds herself rounding her shoulders as the shore worker that was put in on her left side was painful and if she rounded her shoulders it would take off the pain. She notes the pain from the shore worker is not as severe now so she thinks it has become a habit. Palpation Assessment Location left upper trapezius Palpation Location left upper trapezius Palpation Findings Soft Tissue Tightness,Spasm, Muscle Guarding left pec minor Palpation Location left pec minor Palpation Findings Soft Tissue Tightness,Muscle Guarding PT-OP-K Range of Motion Start: 02/18/21 14:02 Freq: Status: Active Protocol: Document 02/18/21 14:45 [facility] (Rec: 02/18/21 15:15 [facility] [id number]) Shoulder Goniometric Range of Motion Shoulder Left Shoulder ROM WFL No Testing Position Standing Flexion 115 Abduction 85 External Rotation at 90 degrees 25 Abduction External Rotation at 45 degrees 30 Abduction Internal Rotation Behind Back (text) T12 Comments These measurements are all AROM PROM is as follows: flexion 130, abduction to 130, ER to 35, IR to 45 with elbow at 45 degrees abduction Shoulder ROM Limitations Shoulder ROM Limitations Soft Tissue Tightness,Pain Comments Improved ROM with proper shoulder position and PROM vs AROM PT-OP-M Strength Start: 02/18/21 14:02 Freq: Status: Active Protocol: Document 02/18/21 14:45 [facility] (Rec: 02/18/21 18:29 [facility] [id number]) Shoulder Strength Shoulder Manual Muscle Testing Left Flexion 3 Fair Abduction (C5) 3 Fair External Rotation 5 Normal Internal Rotation 5 Normal Comments pt denies pain to resisted shoulder ER/IR, pain limits shoulder flexion and abduction for MMT PT-OP-N Lymphedema Start: 02/22/21 16:42 Freq: Status: Active Protocol: Document 03/08/21 15:15 [facility] (Rec: 03/08/21 16:22 [facility] [id number]) Lymphedema Measurements Upper Extremity Circumference Measurements Left Affected MCP 18.7 cm Dorsum of Hand 16 cm Wrist 16.3 cm 10 cm From Wrist Crease 18.8 cm 15 cm From Wrist Crease 22.4 cm 20 cm From Wrist Crease 23.5 cm 25 cm From Wrist Crease 23.9 cm 30 cm From Wrist Crease 24.9 cm 35 cm From Wrist Crease 26.1 cm Axilla 38 cm PT-OP-Q Treatments Start: 02/18/21 14:02 Freq: Status: Active Protocol: Document 03/22/21 16:45 [facility] (Rec: 03/22/21 16:52 [facility] [id number]) Therapeutic Exercises Sitting Exercises posterior capsule stretch Reps/Minutes 2x30 lateral sideband Reps/Minutes 2x 10 Comments hands behind head trunk rotation Sitting Exercise Name gentle yoga twist Comments hand to opposite knee, deep breathing pulleys Sitting Exercise Name shoulder flex and scaption Reps/Minutes 10x Comments cues for slow, to tolerance, end-range stretches, ball at mid thorax Standing Exercises modfied downward dog Reps/Minutes 2x 10 Comments hands waist level holding onto bar, bent over with straight arms Lymphedema Treatment Manual Lymphatic Drainage Location for left UE lymphedema Duration 15 min Comments with focus on AAA, AAI, SOFIE pathways PT-OP-T Assessment and Plan Start: 02/18/21 14:02 Freq: Status: Active Protocol: Document 03/22/21 16:45 [facility] (Rec: 03/22/21 16:52 [facility] [id number]) Physical Therapy Assessment Goals swelling left axilla and hand with axillary cording Impairment lymphedema left UE in axilla with axillary cording from axilla to midway down inside left upper arm and evident in left hand [facility] Goal (LTG) Patient to demonstrate good understanding of lymphedema precautions and management to include skin care, self manual lymphatic drainage, sequential lymphedema exercises, and obtain appropriate compression garment(s) LTG Duration 8 weeks improve postural habits to decrease strain on the left shoulder Impairment forward shoulder posture with pec minor and scar tissue tightness [facility] Goal (LTG) Kathya is able to improve her posture with stretches and manual therapy techniques decreasing tightness of the pec minor musculature. LTG Duration 8 weeks Improve full painfree AROM of the left shoulder Impairment Decreased shoulder AROM [facility] Goal (LTG) Kathya demonstrates an improvement with AROM of the left shoulder witout upper trapezius substitution as of 03/18/21 there is decreased upper trapezius substitution, shoulder flexion to 160, abduction to 110, ER to 75 Kathya reports overall decreased c/o left sided shoulder pain Impairment Left sided shoulder pain that radiates from the shoulder to the medial wrist and creates moderate difficulty with benzene washer operator, carrying a shopping bag or having any pressure through her shoulder. She also has pain sleeping on her left shoulder at night Short Term Goal (STG) Kathya no longer complains of radiating symptoms down her left arm. STG Duration 4 weeks [facility] Goal (LTG) Kathya reports a overall reduction in left shoulder pain and is able to sleep on her left side as well as reports mild difficulty with benzene washer operator. LTG Duration 8 weeks Assessment Summary Assessment circumferential measurements increased in left UE, encouraged to wear compression including to therapy. Improve skin color and decreased lymphedema noted after MLD. Patient continues with chemotherapy, very fatigued after but overall tolerating well. Physical Therapy Plan Frequency and Duration Frequency of Treatment 2x/Week Duration of Treatment 8 weeks Plan of Care Start Date 02/18/21 Plan of Care End Date 04/15/21 Therapeutic Interventions Therapeutic Interventions Home Exercise Program, Lymphedema Management,Manual Therapy,Neuromuscular Re- education,Self-Care/Home Management,Soft Tissue Mobilization,Therapeutic Exercises Next Visit Focus/Plan Next Note Type Treatment Note Next Visit Plan Encourage wearing of compression sleeve and glove to therapy. Continue with ROM and postural exercises, breathing exercises, manual treatment for scar and axillary cording mobilization. MLD for lateral thorax., postural exercises and shoulder ROM measurements
--- NOTE | 2021-03-25 12:09 | PT.OTN ---
Current Diagnoses Personal history of malignant neoplasm of breast (03/25/21) Physical Therapy Treatment Note PT-OP-A Visit Information Start: 02/18/21 14:02 Freq: Status: Active Protocol: Document 03/25/21 10:32 SAK (Rec: 03/25/21 11:15 SAK [id number]) Out-Patient Physical Therapy Visit Information Visit Information Visit Type Treatment Note Visit Start Time 10:30 Visit Stop Time 11:15 Total Visit Minutes 45 Visit Number 10 PT-OP-B Current Condition Start: 02/18/21 14:02 Freq: Status: Active Protocol: Document 03/08/21 15:15 SAK (Rec: 03/08/21 16:22 SAK [id number]) Current Condition History of Current Condition Onset Date date of surgery 12/14/20 Current Complaints Decreased ROM L shoulder, pain History of Current Condition 55 year old female s/p left full mastectomy at [facility] with axial node dissections level 1 -2 and thoracic. Kathya reports she does not currently have any swelling into her arm but does report some swelling into the left axilla. She has pain from the shoulder to her elbow, leaning onto her elbow increases her pain, she is unable to sleep on the left side. Today was her first day of chemotherapy at [facility]. She will be on chemo for 7 months. Pt reports at [facility] she had the lympha procedure where they do microscopic bypasses to make drainage systems to decrease chances of lymphadema. She also has a plumbing manager put in for eventual breast reconstruction. PT-OP-C Subjective Start: 02/18/21 14:02 Freq: Status: Active Protocol: Document 03/25/21 10:32 SAK (Rec: 03/25/21 11:15 SAK [id number]) OP-PT Subjective Patient Comments Patient Comments Reports feels like her chest tightens up so quickly after exercises. Hasn't noticed much swelling. PT-OP-J Posture/Palpation/Skin Start: 02/18/21 14:02 Freq: Status: Active Protocol: Document 02/18/21 14:45 AMH (Rec: 02/18/21 18:01 AMH [id number]) Posture Evaluation Position Sitting Shoulder Posture (L) Rounded,(L) Forward Comments Posture Comments pt has visable rounded shoulder on the left with tightness in her upper trapezius. She reports she finds herself rounding her shoulders as the plumbing manager that was put in on her left side was painful and if she rounded her shoulders it would take off the pain. She notes the pain from the plumbing manager is not as severe now so she thinks it has become a habit. Palpation Assessment Location left upper trapezius Palpation Location left upper trapezius Palpation Findings Soft Tissue Tightness,Spasm, Muscle Guarding left pec minor Palpation Location left pec minor Palpation Findings Soft Tissue Tightness,Muscle Guarding PT-OP-K Range of Motion Start: 02/18/21 14:02 Freq: Status: Active Protocol: Document 02/18/21 14:45 AMH (Rec: 02/18/21 15:15 AMH [id number]) Shoulder Goniometric Range of Motion Shoulder Left Shoulder ROM WFL No Testing Position Standing Flexion 115 Abduction 85 External Rotation at 90 degrees 25 Abduction External Rotation at 45 degrees 30 Abduction Internal Rotation Behind Back (text) T12 Comments These measurements are all AROM PROM is as follows: flexion 130, abduction to 130, ER to 35, IR to 45 with elbow at 45 degrees abduction Shoulder ROM Limitations Shoulder ROM Limitations Soft Tissue Tightness,Pain Comments Improved ROM with proper shoulder position and PROM vs AROM PT-OP-M Strength Start: 02/18/21 14:02 Freq: Status: Active Protocol: Document 02/18/21 14:45 AMH (Rec: 02/18/21 18:29 AMH [id number]) Shoulder Strength Shoulder Manual Muscle Testing Left Flexion 3 Fair Abduction (C5) 3 Fair External Rotation 5 Normal Internal Rotation 5 Normal Comments pt denies pain to resisted shoulder ER/IR, pain limits shoulder flexion and abduction for MMT PT-OP-N Lymphedema Start: 02/22/21 16:42 Freq: Status: Active Protocol: Document 03/08/21 15:15 [facility] (Rec: 03/08/21 16:22 [facility] [id number]) Lymphedema Measurements Upper Extremity Circumference Measurements Left Affected MCP 18.7 cm Dorsum of Hand 16 cm Wrist 16.3 cm 10 cm From Wrist Crease 18.8 cm 15 cm From Wrist Crease 22.4 cm 20 cm From Wrist Crease 23.5 cm 25 cm From Wrist Crease 23.9 cm 30 cm From Wrist Crease 24.9 cm 35 cm From Wrist Crease 26.1 cm Axilla 38 cm PT-OP-Q Treatments Start: 02/18/21 14:02 Freq: Status: Active Protocol: Document 03/25/21 10:32 FREDI (Rec: 03/25/21 11:15 SAK [id number]) Therapeutic Exercises Supine Exercises supine I,T,Y's, angels Equipment Used therapy ball 55cm Reps/Minutes 5 min Sitting Exercises posterior capsule stretch Reps/Minutes 2x30 lateral sideband Reps/Minutes 2x 10 Comments hands behind head trunk rotation Sitting Exercise Name gentle yoga twist Comments hand to opposite knee, deep breathing pulleys Sitting Exercise Name shoulder flex and scaption Reps/Minutes 10x Comments cues for slow, to tolerance, end-range stretches, ball at mid thorax Standing Exercises modfied downward dog Reps/Minutes 2x 10 Comments hands waist level holding onto bar, bent over with straight arms Manual Therapy Treatment Soft Tissue Mobilization scar tissue release in the axilla Body Location left axilla Comments gusha was used over the axillary scar as well as over the anterior chest MFR of the pec minor and subscapularis Body Location left pec minor and subscapularis Comments pt tolerated MFR well, her ER inproving with pec minor release axillary cording Mobilization Type Myofascial Release,Rolling, Sustained Pressure Intensity/Depth Moderate Body Position Hooklying Joint Mobilizations gentle posterior capsule shoulder stretch Joint left shoulder Direction posterior glides Grade II Lymphedema Treatment Manual Lymphatic Drainage Location for left UE lymphedema Duration 15 min Comments with focus on AAA, AAI, SOFIE pathways PT-OP-T Assessment and Plan Start: 02/18/21 14:02 Freq: Status: Active Protocol: Document 03/25/21 10:32 FREDI (Rec: 03/25/21 11:15 [facility] [id number]) Physical Therapy Assessment Goals swelling left axilla and hand with axillary cording Impairment lymphedema left UE in axilla with axillary cording from axilla to midway down inside left upper arm and evident in left hand Communications Planner Goal (LTG) Patient to demonstrate good understanding of lymphedema precautions and management to include skin care, self manual lymphatic drainage, sequential lymphedema exercises, and obtain appropriate compression garment(s) 03/25/21: goal progress, patient wearing compression sleeve, doing some self massage. Encouraged increased viewing of [email or web address] videos. LTG Duration 04/15/21 improve postural habits to decrease strain on the left shoulder Impairment forward shoulder posture with pec minor and scar tissue tightness Detention Goal (LTG) Kathya is able to improve her posture with stretches and manual therapy techniques decreasing tightness of the pec minor musculature. 03/25/21: good goal progress LTG Duration 04/15/21 Improve full painfree AROM of the left shoulder Impairment Decreased shoulder AROM Communications Planner Goal (LTG) Kathya demonstrates an improvement with AROM of the left shoulder witout upper trapezius substitution as of 03/18/21 there is decreased upper trapezius substitution, shoulder flexion to 160, abduction to 110, ER to 75 LTG Duration 04/15/21 Kathya reports overall decreased c/o left sided shoulder pain Impairment Left sided shoulder pain that radiates from the shoulder to the medial wrist and creates moderate difficulty with automobile contract clerk, carrying a shopping bag or having any pressure through her shoulder. She also has pain sleeping on her left shoulder at night Short Term Goal (STG) Kathya no longer complains of radiating symptoms down her left arm. STG Duration 03/16/21 Detention Goal (LTG) Kathya reports a overall reduction in left shoulder pain and is able to sleep on her left side as well as reports mild difficulty with automobile contract clerk. 03/25/21: good goal progress LTG Duration 04/15/21 Assessment Summary Assessment Encouraged increased time spent in each stretch for better benefit. Lymphedema decreased with treatment and patient improved compliance to wearing compression sleeve, though axillary cording and subaxillary tightness persists . Gradual improvement in shoulder ROM. Physical Therapy Plan Frequency and Duration Frequency of Treatment 2x/Week Duration of Treatment 8 weeks Plan of Care Start Date 02/18/21 Plan of Care End Date 04/15/21 Therapeutic Interventions Therapeutic Interventions Home Exercise Program, Lymphedema Management,Manual Therapy,Neuromuscular Re- education,Self-Care/Home Management,Soft Tissue Mobilization,Therapeutic Exercises Next Visit Focus/Plan Next Note Type Treatment Note Next Visit Plan Continue with ROM and postural exercises, breathing exercises, manual treatment for scar and axillary cording mobilization. MLD for lateral thorax and UE lymphedema, postural exercises and shoulder ROM measurements
--- NOTE | 2021-03-25 16:27 | PT.OPPN ---
Current Diagnoses Personal history of malignant neoplasm of breast (03/25/21) Physical Therapy Progress Note PT-OP-A Visit Information Start: 02/18/21 14:02 Freq: Status: Active Protocol: Document 03/25/21 10:32 SAK (Rec: 03/25/21 11:15 SAK [id number]) Out-Patient Physical Therapy Visit Information Visit Information Visit Type Treatment Note Visit Start Time 10:30 Visit Stop Time 11:15 Total Visit Minutes 45 Visit Number 10 PT-OP-B Current Condition Start: 02/18/21 14:02 Freq: Status: Active Protocol: Document 03/08/21 15:15 SAK (Rec: 03/08/21 16:22 SAK [id number]) Current Condition History of Current Condition Onset Date date of surgery 12/14/20 Current Complaints Decreased ROM L shoulder, pain History of Current Condition 55 year old female s/p left full mastectomy at [facility] with axial node dissections level 1 -2 and thoracic. Kathya reports she does not currently have any swelling into her arm but does report some swelling into the left axilla. She has pain from the shoulder to her elbow, leaning onto her elbow increases her pain, she is unable to sleep on the left side. Today was her first day of chemotherapy at [facility]. She will be on chemo for 7 months. Pt reports at [facility] she had the lympha procedure where they do microscopic bypasses to make drainage systems to decrease chances of lymphadema. She also has a auto service mechanic put in for eventual breast reconstruction. PT-OP-C Subjective Start: 02/18/21 14:02 Freq: Status: Active Protocol: Document 03/25/21 10:32 SAK (Rec: 03/25/21 11:15 SAK [id number]) OP-PT Subjective Patient Comments Patient Comments Reports feels like her chest tightens up so quickly after exercises. Hasn't noticed much swelling. PT-OP-J Posture/Palpation/Skin Start: 02/18/21 14:02 Freq: Status: Active Protocol: Document 02/18/21 14:45 AMH (Rec: 02/18/21 18:01 AMH [id number]) Posture Evaluation Position Sitting Shoulder Posture (L) Rounded,(L) Forward Comments Posture Comments pt has visable rounded shoulder on the left with tightness in her upper trapezius. She reports she finds herself rounding her shoulders as the auto service mechanic that was put in on her left side was painful and if she rounded her shoulders it would take off the pain. She notes the pain from the auto service mechanic is not as severe now so she thinks it has become a habit. Palpation Assessment Location left upper trapezius Palpation Location left upper trapezius Palpation Findings Soft Tissue Tightness,Spasm, Muscle Guarding left pec minor Palpation Location left pec minor Palpation Findings Soft Tissue Tightness,Muscle Guarding PT-OP-K Range of Motion Start: 02/18/21 14:02 Freq: Status: Active Protocol: Document 02/18/21 14:45 AMH (Rec: 02/18/21 15:15 [facility] [id number]) Shoulder Goniometric Range of Motion Shoulder Measured in Degrees Left Shoulder ROM WFL No Testing Position Standing Flexion 115 Abduction 85 External Rotation at 90 degrees 25 Abduction External Rotation at 45 degrees 30 Abduction Internal Rotation Behind Back (text) T12 Comments These measurements are all AROM PROM is as follows: flexion 130, abduction to 130, ER to 35, IR to 45 with elbow at 45 degrees abduction Shoulder ROM Limitations Shoulder ROM Limitations Soft Tissue Tightness,Pain Comments Improved ROM with proper shoulder position and PROM vs AROM PT-OP-M Strength Start: 02/18/21 14:02 Freq: Status: Active Protocol: Document 02/18/21 14:45 AMH (Rec: 02/18/21 18:29 AMH [id number]) Shoulder Strength Shoulder Manual Muscle Testing Left Flexion 3 Fair Abduction (C5) 3 Fair External Rotation 5 Normal Internal Rotation 5 Normal Comments pt denies pain to resisted shoulder ER/IR, pain limits shoulder flexion and abduction for MMT PT-OP-N Lymphedema Start: 02/22/21 16:42 Freq: Status: Active Protocol: Document 03/08/21 15:15 [facility] (Rec: 03/08/21 16:22 SAK [id number]) Lymphedema Measurements Upper Extremity Circumference Measurements Left Affected MCP 18.7 cm Dorsum of Hand 16 cm Wrist 16.3 cm 10 cm From Wrist Crease 18.8 cm 15 cm From Wrist Crease 22.4 cm 20 cm From Wrist Crease 23.5 cm 25 cm From Wrist Crease 23.9 cm 30 cm From Wrist Crease 24.9 cm 35 cm From Wrist Crease 26.1 cm Axilla 38 cm PT-OP-T Assessment and Plan Start: 02/18/21 14:02 Freq: Status: Active Protocol: Document 03/25/21 10:32 FREDI (Rec: 03/25/21 11:15 SAK [id number]) Physical Therapy Assessment Goals swelling left axilla and hand with axillary cording Impairment lymphedema left UE in axilla with axillary cording from axilla to midway down inside left upper arm and evident in left hand Armoring Machine Operator Goal (LTG) Patient to demonstrate good understanding of lymphedema precautions and management to include skin care, self manual lymphatic drainage, sequential lymphedema exercises, and obtain appropriate compression garment(s) 03/25/21: goal progress, patient wearing compression sleeve, doing some self massage. Encouraged increased viewing of [employer] videos. LTG Duration 04/15/21 improve postural habits to decrease strain on the left shoulder Impairment forward shoulder posture with pec minor and scar tissue tightness Armoring Machine Operator Goal (LTG) Kathya is able to improve her posture with stretches and manual therapy techniques decreasing tightness of the pec minor musculature. 03/25/21: good goal progress LTG Duration 04/15/21 Improve full painfree AROM of the left shoulder Impairment Decreased shoulder AROM Armoring Machine Operator Goal (LTG) Kathya demonstrates an improvement with AROM of the left shoulder witout upper trapezius substitution as of 03/18/21 there is decreased upper trapezius substitution, shoulder flexion to 160, abduction to 110, ER to 75 LTG Duration 04/15/21 Kathya reports overall decreased c/o left sided shoulder pain Impairment Left sided shoulder pain that radiates from the shoulder to the medial wrist and creates moderate difficulty with radiology assistant, carrying a shopping bag or having any pressure through her shoulder. She also has pain sleeping on her left shoulder at night Short Term Goal (STG) Kathya no longer complains of radiating symptoms down her left arm. STG Duration 03/16/21 Armoring Machine Operator Goal (LTG) Kathya reports a overall reduction in left shoulder pain and is able to sleep on her left side as well as reports mild difficulty with radiology assistant. 03/25/21: good goal progress LTG Duration 04/15/21 Assessment Summary Assessment Encouraged increased time spent in each stretch for better benefit. Lymphedema decreased with treatment and patient improved compliance to wearing compression sleeve, though axillary cording and subaxillary tightness persists . Gradual improvement in shoulder ROM. Physical Therapy Plan Frequency and Duration Frequency of Treatment 2x/Week Duration of Treatment 8 weeks Plan of Care Start Date 02/18/21 Plan of Care End Date 04/15/21 Therapeutic Interventions Therapeutic Interventions Home Exercise Program, Lymphedema Management,Manual Therapy,Neuromuscular Re- education,Self-Care/Home Management,Soft Tissue Mobilization,Therapeutic Exercises Next Visit Focus/Plan Next Note Type Treatment Note Next Visit Plan Continue with ROM and postural exercises, breathing exercises, manual treatment for scar and axillary cording mobilization. MLD for lateral thorax and UE lymphedema, postural exercises and shoulder ROM measurements
--- NOTE | 2021-03-29 13:56 | PT.OTN ---
Current Diagnoses Personal history of malignant neoplasm of breast (03/29/21) Physical Therapy Treatment Note PT-OP-A Visit Information Start: 02/18/21 14:02 Freq: Status: Active Protocol: Document 03/29/21 09:14 [facility] (Rec: 03/29/21 09:47 [facility] [id number]) Out-Patient Physical Therapy Visit Information Visit Information Visit Type Treatment Note Visit Note patient 15 min late Visit Start Time 09:15 Visit Stop Time 11:15 Total Visit Minutes 30 Visit Number 11 PT-OP-B Current Condition Start: 02/18/21 14:02 Freq: Status: Active Protocol: Document 03/08/21 15:15 [facility] (Rec: 03/08/21 16:22 [facility] [id number]) Current Condition History of Current Condition Onset Date date of surgery 12/14/20 Current Complaints Decreased ROM L shoulder, pain History of Current Condition 55 year old female s/p left full mastectomy at [facility] with axial node dissections level 1 -2 and thoracic. Kathya reports she does not currently have any swelling into her arm but does report some swelling into the left axilla. She has pain from the shoulder to her elbow, leaning onto her elbow increases her pain, she is unable to sleep on the left side. Today was her first day of chemotherapy at [facility]. She will be on chemo for 7 months. Pt reports at [facility] she had the lympha procedure where they do microscopic bypasses to make drainage systems to decrease chances of lymphadema. She also has a asphalt worker put in for eventual breast reconstruction. PT-OP-C Subjective Start: 02/18/21 14:02 Freq: Status: Active Protocol: Document 03/29/21 09:14 [facility] (Rec: 03/29/21 09:47 [facility] [id number]) OP-PT Subjective Patient Comments Patient Comments Finally got onto [employer] channel for self MLD and brushing. Forgot to lay on her back on therapy ball for ex as instructed last session. PT-OP-J Posture/Palpation/Skin Start: 02/18/21 14:02 Freq: Status: Active Protocol: Document 02/18/21 14:45 [facility] (Rec: 02/18/21 18:01 [facility] [id number]) Posture Evaluation Position Sitting Shoulder Posture (L) Rounded,(L) Forward Comments Posture Comments pt has visable rounded shoulder on the left with tightness in her upper trapezius. She reports she finds herself rounding her shoulders as the asphalt worker that was put in on her left side was painful and if she rounded her shoulders it would take off the pain. She notes the pain from the asphalt worker is not as severe now so she thinks it has become a habit. Palpation Assessment Location left upper trapezius Palpation Location left upper trapezius Palpation Findings Soft Tissue Tightness,Spasm, Muscle Guarding left pec minor Palpation Location left pec minor Palpation Findings Soft Tissue Tightness,Muscle Guarding PT-OP-K Range of Motion Start: 02/18/21 14:02 Freq: Status: Active Protocol: Document 02/18/21 14:45 [facility] (Rec: 02/18/21 15:15 [facility] [id number]) Shoulder Goniometric Range of Motion Shoulder Left Shoulder ROM WFL No Testing Position Standing Flexion 115 Abduction 85 External Rotation at 90 degrees 25 Abduction External Rotation at 45 degrees 30 Abduction Internal Rotation Behind Back (text) T12 Comments These measurements are all AROM PROM is as follows: flexion 130, abduction to 130, ER to 35, IR to 45 with elbow at 45 degrees abduction Shoulder ROM Limitations Shoulder ROM Limitations Soft Tissue Tightness,Pain Comments Improved ROM with proper shoulder position and PROM vs AROM PT-OP-M Strength Start: 02/18/21 14:02 Freq: Status: Active Protocol: Document 02/18/21 14:45 [facility] (Rec: 02/18/21 18:29 [facility] [id number]) Shoulder Strength Shoulder Manual Muscle Testing Left Flexion 3 Fair Abduction (C5) 3 Fair External Rotation 5 Normal Internal Rotation 5 Normal Comments pt denies pain to resisted shoulder ER/IR, pain limits shoulder flexion and abduction for MMT PT-OP-N Lymphedema Start: 02/22/21 16:42 Freq: Status: Active Protocol: Document 03/08/21 15:15 [facility] (Rec: 03/08/21 16:22 [facility] [id number]) Lymphedema Measurements Upper Extremity Circumference Measurements Left Affected MCP 18.7 cm Dorsum of Hand 16 cm Wrist 16.3 cm 10 cm From Wrist Crease 18.8 cm 15 cm From Wrist Crease 22.4 cm 20 cm From Wrist Crease 23.5 cm 25 cm From Wrist Crease 23.9 cm 30 cm From Wrist Crease 24.9 cm 35 cm From Wrist Crease 26.1 cm Axilla 38 cm PT-OP-Q Treatments Start: 02/18/21 14:02 Freq: Status: Active Protocol: Document 03/29/21 09:14 [facility] (Rec: 03/29/21 09:47 [facility] [id number]) Therapeutic Exercises Sitting Exercises pulleys Sitting Exercise Name shoulder flex and scaption Reps/Minutes 10x Comments cues for slow, to tolerance, end-range stretches, ball at mid thorax Other Exercises tisha pose with lat stretch Reps/Minutes hold 1-2 min Manual Therapy Treatment Soft Tissue Mobilization scar tissue release in the axilla Body Location left axilla Intensity/Depth Moderate Body Position Supine Comments use of suction tool MFR of the pec minor and subscapularis Body Location left pec minor and subscapularis Comments pt tolerated MFR well, her ER inproving with pec minor release axillary cording Mobilization Type Myofascial Release,Rolling, Sustained Pressure Intensity/Depth Moderate Body Position Hooklying PT-OP-T Assessment and Plan Start: 02/18/21 14:02 Freq: Status: Active Protocol: Document 03/29/21 09:14 [facility] (Rec: 03/29/21 09:47 [facility] [id number]) Physical Therapy Assessment Goals swelling left axilla and hand with axillary cording Impairment lymphedema left UE in axilla with axillary cording from axilla to midway down inside left upper arm and evident in left hand Turner Off Goal (LTG) Patient to demonstrate good understanding of lymphedema precautions and management to include skin care, self manual lymphatic drainage, sequential lymphedema exercises, and obtain appropriate compression garment(s) 03/25/21: goal progress, patient wearing compression sleeve, doing some self massage. Encouraged increased viewing of [facility] [employer] videos. LTG Duration 04/15/21 improve postural habits to decrease strain on the left shoulder Impairment forward shoulder posture with pec minor and scar tissue tightness Turner Off Goal (LTG) Kathya is able to improve her posture with stretches and manual therapy techniques decreasing tightness of the pec minor musculature. 03/25/21: good goal progress LTG Duration 04/15/21 Improve full painfree AROM of the left shoulder Impairment Decreased shoulder AROM Turner Off Goal (LTG) Kathya demonstrates an improvement with AROM of the left shoulder witout upper trapezius substitution as of 03/18/21 there is decreased upper trapezius substitution, shoulder flexion to 160, abduction to 110, ER to 75 LTG Duration 04/15/21 Kathya reports overall decreased c/o left sided shoulder pain Impairment Left sided shoulder pain that radiates from the shoulder to the medial wrist and creates moderate difficulty with demurrage agent, carrying a shopping bag or having any pressure through her shoulder. She also has pain sleeping on her left shoulder at night Short Term Goal (STG) Kathya no longer complains of radiating symptoms down her left arm. STG Duration 03/16/21 Turner Off Goal (LTG) Kathya reports a overall reduction in left shoulder pain and is able to sleep on her left side as well as reports mild difficulty with demurrage agent. 03/25/21: good goal progress LTG Duration 04/15/21 Assessment Summary Assessment Patient demnstrating improving understanding and compliance with slower stretches. Treatment time short due to patient late 15 min. Some improvement noted in axillary cording. No circumferential measurements due to time limitations. Physical Therapy Plan Frequency and Duration Frequency of Treatment 2x/Week Duration of Treatment 8 weeks Plan of Care Start Date 02/18/21 Plan of Care End Date 04/15/21 Therapeutic Interventions Therapeutic Interventions Home Exercise Program, Lymphedema Management,Manual Therapy,Neuromuscular Re- education,Self-Care/Home Management,Soft Tissue Mobilization,Therapeutic Exercises Next Visit Focus/Plan Next Note Type Treatment Note Next Visit Plan Circumferential measurements and ROM measurements. Continue with ROM and postural exercises, breathing exercises, manual treatment for scar and axillary cording mobilization. Pin and stretch techniques. MLD for lateral thorax and UE lymphedema, \
--- NOTE | 2021-03-31 13:22 | PT.OTN ---
Current Diagnoses Personal history of malignant neoplasm of breast (03/31/21) Physical Therapy Treatment Note PT-OP-A Visit Information Start: 02/18/21 14:02 Freq: Status: Active Protocol: Document 03/31/21 11:19 [facility] (Rec: 03/31/21 12:14 [facility] [id number]) Out-Patient Physical Therapy Visit Information Visit Information Visit Type Treatment Note Visit Start Time 11:20 Visit Stop Time 12:05 Total Visit Minutes 45 Visit Number 12 PT-OP-B Current Condition Start: 02/18/21 14:02 Freq: Status: Active Protocol: Document 03/08/21 15:15 [facility] (Rec: 03/08/21 16:22 [facility] [id number]) Current Condition History of Current Condition Onset Date date of surgery 12/14/20 Current Complaints Decreased ROM L shoulder, pain History of Current Condition 55 year old female s/p left full mastectomy at [facility] with axial node dissections level 1 -2 and thoracic. Kathya reports she does not currently have any swelling into her arm but does report some swelling into the left axilla. She has pain from the shoulder to her elbow, leaning onto her elbow increases her pain, she is unable to sleep on the left side. Today was her first day of chemotherapy at [facility]. She will be on chemo for 7 months. Pt reports at [facility] she had the lympha procedure where they do microscopic bypasses to make drainage systems to decrease chances of lymphadema. She also has a cancer center director put in for eventual breast reconstruction. PT-OP-C Subjective Start: 02/18/21 14:02 Freq: Status: Active Protocol: Document 03/31/21 11:19 [facility] (Rec: 03/31/21 12:14 [facility] [id number]) OP-PT Subjective Patient Comments Patient Comments Pt reports its the axillary cording at this point tht is keeping her from full shoulder ROM as it is the only place she feels a stretch. She has been stretching over the ball as much as she can. She notes in the morning her hands are a little colder and swollen, she is sleeping on the bolster to keep her chest expanded. Patient Reported Progress Improving PT-OP-J Posture/Palpation/Skin Start: 02/18/21 14:02 Freq: Status: Active Protocol: Document 02/18/21 14:45 [facility] (Rec: 02/18/21 18:01 [facility] [id number]) Posture Evaluation Position Sitting Shoulder Posture (L) Rounded,(L) Forward Comments Posture Comments pt has visable rounded shoulder on the left with tightness in her upper trapezius. She reports she finds herself rounding her shoulders as the cancer center director that was put in on her left side was painful and if she rounded her shoulders it would take off the pain. She notes the pain from the cancer center director is not as severe now so she thinks it has become a habit. Palpation Assessment Location left upper trapezius Palpation Location left upper trapezius Palpation Findings Soft Tissue Tightness,Spasm, Muscle Guarding left pec minor Palpation Location left pec minor Palpation Findings Soft Tissue Tightness,Muscle Guarding PT-OP-K Range of Motion Start: 02/18/21 14:02 Freq: Status: Active Protocol: Document 02/18/21 14:45 [facility] (Rec: 02/18/21 15:15 [facility] [id number]) Shoulder Goniometric Range of Motion Shoulder Left Shoulder ROM WFL No Testing Position Standing Flexion 115 Abduction 85 External Rotation at 90 degrees 25 Abduction External Rotation at 45 degrees 30 Abduction Internal Rotation Behind Back (text) T12 Comments These measurements are all AROM PROM is as follows: flexion 130, abduction to 130, ER to 35, IR to 45 with elbow at 45 degrees abduction Shoulder ROM Limitations Shoulder ROM Limitations Soft Tissue Tightness,Pain Comments Improved ROM with proper shoulder position and PROM vs AROM PT-OP-M Strength Start: 02/18/21 14:02 Freq: Status: Active Protocol: Document 02/18/21 14:45 [facility] (Rec: 02/18/21 18:29 [facility] [id number]) Shoulder Strength Shoulder Manual Muscle Testing Left Flexion 3 Fair Abduction (C5) 3 Fair External Rotation 5 Normal Internal Rotation 5 Normal Comments pt denies pain to resisted shoulder ER/IR, pain limits shoulder flexion and abduction for MMT PT-OP-N Lymphedema Start: 02/22/21 16:42 Freq: Status: Active Protocol: Document 03/08/21 15:15 [facility] (Rec: 03/08/21 16:22 [facility] [id number]) Lymphedema Measurements Upper Extremity Circumference Measurements Left Affected MCP 18.7 cm Dorsum of Hand 16 cm Wrist 16.3 cm 10 cm From Wrist Crease 18.8 cm 15 cm From Wrist Crease 22.4 cm 20 cm From Wrist Crease 23.5 cm 25 cm From Wrist Crease 23.9 cm 30 cm From Wrist Crease 24.9 cm 35 cm From Wrist Crease 26.1 cm Axilla 38 cm PT-OP-Q Treatments Start: 02/18/21 14:02 Freq: Status: Active Protocol: Document 03/31/21 11:19 [facility] (Rec: 03/31/21 12:14 [facility] [id number]) Therapeutic Exercises Standing Exercises standing shoulder flexion rolling the foam roll up wall Reps/Minutes x 10 reps modfied downward dog Reps/Minutes 2x 10 Comments hands waist level holding onto bar, bent over with straight arms Other Exercises quadruped thoracic rotation Reps/Minutes x 5 reps each side tisha pose with lat stretch Reps/Minutes hold 1-2 min Manual Therapy Treatment Soft Tissue Mobilization scar tissue release in the axilla Body Location left axilla Intensity/Depth Moderate Body Position Supine Comments use of suction tool MFR of the pec minor and subscapularis Body Location left pec minor and subscapularis Comments pt tolerated MFR well, her ER inproving with pec minor release Manual Techniques manual shoulder stretch into flexion Body Location left shoulder Comments this was combined with MFR on the left shoulder PT-OP-T Assessment and Plan Start: 02/18/21 14:02 Freq: Status: Active Protocol: Document 03/31/21 11:19 [facility] (Rec: 03/31/21 12:14 [facility] [id number]) Physical Therapy Assessment Assessment Summary Assessment pt was on time today however there was a line to check in so her treatment started late. The axillary cording appears like it is decreased and Kathya is spending increased time stretching. Physical Therapy Plan Frequency and Duration Frequency of Treatment 2x/Week Duration of Treatment 8 weeks Plan of Care Start Date 02/18/21 Plan of Care End Date 04/15/21 Therapeutic Interventions Therapeutic Interventions Home Exercise Program, Lymphedema Management,Manual Therapy,Neuromuscular Re- education,Self-Care/Home Management,Soft Tissue Mobilization,Therapeutic Exercises Next Visit Focus/Plan Next Note Type Treatment Note Next Visit Plan Circumferential measurements and ROM measurements. Continue with ROM and postural exercises, breathing exercises, manual treatment for scar and axillary cording mobilization. Pin and stretch techniques. MLD for lateral thorax and UE lymphedema, \
--- NOTE | 2021-04-05 16:04 | PT.OTN ---
Current Diagnoses Personal history of malignant neoplasm of breast (04/05/21) Physical Therapy Treatment Note PT-OP-A Visit Information Start: 02/18/21 14:02 Freq: Status: Active Protocol: Document 04/05/21 09:07 [facility] (Rec: 04/05/21 09:25 [facility] [id number]) Out-Patient Physical Therapy Visit Information Visit Information Visit Type Treatment Note Visit Start Time 09:05 Visit Stop Time 12:05 Total Visit Minutes 45 Visit Number 13 PT-OP-B Current Condition Start: 02/18/21 14:02 Freq: Status: Active Protocol: Document 03/08/21 15:15 [facility] (Rec: 03/08/21 16:22 [facility] [id number]) Current Condition History of Current Condition Onset Date date of surgery 12/14/20 Current Complaints Decreased ROM L shoulder, pain History of Current Condition 55 year old female s/p left full mastectomy at [facility] with axial node dissections level 1 -2 and thoracic. Kathya reports she does not currently have any swelling into her arm but does report some swelling into the left axilla. She has pain from the shoulder to her elbow, leaning onto her elbow increases her pain, she is unable to sleep on the left side. Today was her first day of chemotherapy at [facility]. She will be on chemo for 7 months. Pt reports at [facility] she had the lympha procedure where they do microscopic bypasses to make drainage systems to decrease chances of lymphadema. She also has a ticketing agent put in for eventual breast reconstruction. PT-OP-C Subjective Start: 02/18/21 14:02 Freq: Status: Active Protocol: Document 04/05/21 09:07 [facility] (Rec: 04/05/21 09:25 [facility] [id number]) OP-PT Subjective Patient Comments Patient Comments Cording remains the most problematic. Has been using therapy ball consistently. Doing self-massage. Is going to get a new sleeve; has ordered. Will be finishing chemo end of May, pleased it will be shorter than what was initially anticipated. PT-OP-J Posture/Palpation/Skin Start: 02/18/21 14:02 Freq: Status: Active Protocol: Document 02/18/21 14:45 [facility] (Rec: 02/18/21 18:01 [facility] [id number]) Posture Evaluation Position Sitting Shoulder Posture (L) Rounded,(L) Forward Comments Posture Comments pt has visable rounded shoulder on the left with tightness in her upper trapezius. She reports she finds herself rounding her shoulders as the ticketing agent that was put in on her left side was painful and if she rounded her shoulders it would take off the pain. She notes the pain from the ticketing agent is not as severe now so she thinks it has become a habit. Palpation Assessment Location left upper trapezius Palpation Location left upper trapezius Palpation Findings Soft Tissue Tightness,Spasm, Muscle Guarding left pec minor Palpation Location left pec minor Palpation Findings Soft Tissue Tightness,Muscle Guarding PT-OP-K Range of Motion Start: 02/18/21 14:02 Freq: Status: Active Protocol: Document 02/18/21 14:45 [facility] (Rec: 02/18/21 15:15 [facility] [id number]) Shoulder Goniometric Range of Motion Shoulder Left Shoulder ROM WFL No Testing Position Standing Flexion 115 Abduction 85 External Rotation at 90 degrees 25 Abduction External Rotation at 45 degrees 30 Abduction Internal Rotation Behind Back (text) T12 Comments These measurements are all AROM PROM is as follows: flexion 130, abduction to 130, ER to 35, IR to 45 with elbow at 45 degrees abduction Shoulder ROM Limitations Shoulder ROM Limitations Soft Tissue Tightness,Pain Comments Improved ROM with proper shoulder position and PROM vs AROM PT-OP-M Strength Start: 02/18/21 14:02 Freq: Status: Active Protocol: Document 02/18/21 14:45 [facility] (Rec: 02/18/21 18:29 [facility] [id number]) Shoulder Strength Shoulder Manual Muscle Testing Left Flexion 3 Fair Abduction (C5) 3 Fair External Rotation 5 Normal Internal Rotation 5 Normal Comments pt denies pain to resisted shoulder ER/IR, pain limits shoulder flexion and abduction for MMT PT-OP-N Lymphedema Start: 02/22/21 16:42 Freq: Status: Active Protocol: Document 03/08/21 15:15 [facility] (Rec: 03/08/21 16:22 [facility] [id number]) Lymphedema Measurements Upper Extremity Circumference Measurements Left Affected MCP 18.7 cm Dorsum of Hand 16 cm Wrist 16.3 cm 10 cm From Wrist Crease 18.8 cm 15 cm From Wrist Crease 22.4 cm 20 cm From Wrist Crease 23.5 cm 25 cm From Wrist Crease 23.9 cm 30 cm From Wrist Crease 24.9 cm 35 cm From Wrist Crease 26.1 cm Axilla 38 cm PT-OP-Q Treatments Start: 02/18/21 14:02 Freq: Status: Active Protocol: Document 04/05/21 09:07 [facility] (Rec: 04/05/21 09:25 [facility] [id number]) Therapeutic Exercises Standing Exercises doorway stretch Reps/Minutes 4 min Comments varying angles modfied downward dog Reps/Minutes 2x 10 Comments hands waist level holding onto bar, bent over with straight arms Manual Therapy Treatment Soft Tissue Mobilization scar tissue release in the axilla Body Location left axilla Intensity/Depth Moderate Body Position Supine Comments use of suction tool MFR of the pec minor and subscapularis Body Location left pec minor and subscapularis Comments pt tolerated MFR well, her ER inproving with pec minor release axillary cording Mobilization Type Myofascial Release,Rolling, Sustained Pressure,Other Intensity/Depth Moderate Body Position Hooklying Comments suction Manual Techniques manual shoulder stretch into flexion Body Location left shoulder Comments with pin and stretch Lymphedema Treatment Manual Lymphatic Drainage Location for left UE lymphedema Duration 10 min Comments with focus on AAA, AAI, SOFIE pathways PT-OP-T Assessment and Plan Start: 02/18/21 14:02 Freq: Status: Active Protocol: Document 04/05/21 09:07 [facility] (Rec: 04/05/21 09:25 [facility] [id number]) Physical Therapy Assessment Goals swelling left axilla and hand with axillary cording Impairment lymphedema left UE in axilla with axillary cording from axilla to midway down inside left upper arm and evident in left hand [facility] Goal (LTG) Patient to demonstrate good understanding of lymphedema precautions and management to include skin care, self manual lymphatic drainage, sequential lymphedema exercises, and obtain appropriate compression garment(s) 03/25/21: goal progress, patient wearing compression sleeve, doing some self massage. Encouraged increased viewing of [employer] videos. LTG Duration 04/15/21 improve postural habits to decrease strain on the left shoulder Impairment forward shoulder posture with pec minor and scar tissue tightness Pressure Steamer Tender Goal (LTG) Kathya is able to improve her posture with stretches and manual therapy techniques decreasing tightness of the pec minor musculature. 03/25/21: good goal progress LTG Duration 04/15/21 Improve full painfree AROM of the left shoulder Impairment Decreased shoulder AROM Pressure Steamer Tender Goal (LTG) Kathya demonstrates an improvement with AROM of the left shoulder witout upper trapezius substitution as of 03/18/21 there is decreased upper trapezius substitution, shoulder flexion to 160, abduction to 110, ER to 75 LTG Duration 04/15/21 Kathya reports overall decreased c/o left sided shoulder pain Impairment Left sided shoulder pain that radiates from the shoulder to the medial wrist and creates moderate difficulty with head start director, carrying a shopping bag or having any pressure through her shoulder. She also has pain sleeping on her left shoulder at night Short Term Goal (STG) Kathya no longer complains of radiating symptoms down her left arm. STG Duration 03/16/21 Pressure Steamer Tender Goal (LTG) Kathya reports a overall reduction in left shoulder pain and is able to sleep on her left side as well as reports mild difficulty with head start director. 03/25/21: good goal progress LTG Duration 04/15/21 Assessment Summary Assessment Patient improving with HEP compliance, shoulder ROM, decreased axillary cording though still present. Tolerated med sized suction tool today; focused mostly on axillary cording with manual techniques. Also stressed importance of good compression proximally and doing self MLD ; patient has ordered new compression sleeve. Circumferential measurements stable today except increased subaxillary. Physical Therapy Plan Frequency and Duration Frequency of Treatment 2x/Week Duration of Treatment 8 weeks Plan of Care Start Date 02/18/21 Plan of Care End Date 04/15/21 Therapeutic Interventions Therapeutic Interventions Home Exercise Program, Lymphedema Management,Manual Therapy,Neuromuscular Re- education,Self-Care/Home Management,Soft Tissue Mobilization,Therapeutic Exercises Next Visit Focus/Plan Next Note Type Treatment Note Next Visit Plan Circumferential measurements and ROM measurements. Continue with ROM and postural exercises, breathing exercises, manual treatment for scar and axillary cording mobilization. Pin and stretch techniques. MLD for lateral thorax and UE lymphedema,
--- NOTE | 2021-04-13 10:03 | PT.OTN ---
Current Diagnoses Personal history of malignant neoplasm of breast (04/13/21) Physical Therapy Treatment Note PT-OP-A Visit Information Start: 02/18/21 14:02 Freq: Status: Active Protocol: Document 04/13/21 09:05 [facility] (Rec: 04/13/21 10:02 [facility] [id number]) Out-Patient Physical Therapy Visit Information Visit Information Visit Type Progress Note Visit Start Time 09:05 Visit Stop Time 09:50 Total Visit Minutes 45 Visit Number 14 Evaluation Information Evaluation Date 02/18/21 PT-OP-B Current Condition Start: 02/18/21 14:02 Freq: Status: Active Protocol: Document 03/08/21 15:15 [facility] (Rec: 03/08/21 16:22 [facility] [id number]) Current Condition History of Current Condition Onset Date date of surgery 12/14/20 Current Complaints Decreased ROM L shoulder, pain History of Current Condition 55 year old female s/p left full mastectomy at [facility] with axial node dissections level 1 -2 and thoracic. Kathya reports she does not currently have any swelling into her arm but does report some swelling into the left axilla. She has pain from the shoulder to her elbow, leaning onto her elbow increases her pain, she is unable to sleep on the left side. Today was her first day of chemotherapy at [facility]. She will be on chemo for 7 months. Pt reports at [facility] she had the lympha procedure where they do microscopic bypasses to make drainage systems to decrease chances of lymphadema. She also has a senior cytogenetics laboratory director put in for eventual breast reconstruction. PT-OP-C Subjective Start: 02/18/21 14:02 Freq: Status: Active Protocol: Document 04/13/21 09:05 [facility] (Rec: 04/13/21 09:12 [facility] [id number]) OP-PT Subjective Patient Comments Patient Comments pt reports she is feelng a lot better, she ordered a new compression shawl type of garmet without any spandex which she was having a allergic reaction to. Patient Reported Progress Improving PT-OP-J Posture/Palpation/Skin Start: 02/18/21 14:02 Freq: Status: Active Protocol: Document 02/18/21 14:45 [facility] (Rec: 02/18/21 18:01 [facility] [id number]) Posture Evaluation Position Sitting Shoulder Posture (L) Rounded,(L) Forward Comments Posture Comments pt has visable rounded shoulder on the left with tightness in her upper trapezius. She reports she finds herself rounding her shoulders as the senior cytogenetics laboratory director that was put in on her left side was painful and if she rounded her shoulders it would take off the pain. She notes the pain from the senior cytogenetics laboratory director is not as severe now so she thinks it has become a habit. Palpation Assessment Location left upper trapezius Palpation Location left upper trapezius Palpation Findings Soft Tissue Tightness,Spasm, Muscle Guarding left pec minor Palpation Location left pec minor Palpation Findings Soft Tissue Tightness,Muscle Guarding PT-OP-K Range of Motion Start: 02/18/21 14:02 Freq: Status: Active Protocol: Document 02/18/21 14:45 [facility] (Rec: 02/18/21 15:15 [facility] [id number]) Shoulder Goniometric Range of Motion Shoulder Left Shoulder ROM WFL No Testing Position Standing Flexion 115 Abduction 85 External Rotation at 90 degrees 25 Abduction External Rotation at 45 degrees 30 Abduction Internal Rotation Behind Back (text) T12 Comments These measurements are all AROM PROM is as follows: flexion 130, abduction to 130, ER to 35, IR to 45 with elbow at 45 degrees abduction Shoulder ROM Limitations Shoulder ROM Limitations Soft Tissue Tightness,Pain Comments Improved ROM with proper shoulder position and PROM vs AROM PT-OP-M Strength Start: 02/18/21 14:02 Freq: Status: Active Protocol: Document 02/18/21 14:45 [facility] (Rec: 02/18/21 18:29 [facility] [id number]) Shoulder Strength Shoulder Manual Muscle Testing Left Flexion 3 Fair Abduction (C5) 3 Fair External Rotation 5 Normal Internal Rotation 5 Normal Comments pt denies pain to resisted shoulder ER/IR, pain limits shoulder flexion and abduction for MMT PT-OP-N Lymphedema Start: 02/22/21 16:42 Freq: Status: Active Protocol: Document 03/08/21 15:15 [facility] (Rec: 03/08/21 16:22 [facility] [id number]) Lymphedema Measurements Upper Extremity Circumference Measurements Left Affected MCP 18.7 cm Dorsum of Hand 16 cm Wrist 16.3 cm 10 cm From Wrist Crease 18.8 cm 15 cm From Wrist Crease 22.4 cm 20 cm From Wrist Crease 23.5 cm 25 cm From Wrist Crease 23.9 cm 30 cm From Wrist Crease 24.9 cm 35 cm From Wrist Crease 26.1 cm Axilla 38 cm PT-OP-Q Treatments Start: 02/18/21 14:02 Freq: Status: Active Protocol: Document 04/13/21 09:05 [facility] (Rec: 04/13/21 10:02 [facility] [id number]) Manual Therapy Treatment Soft Tissue Mobilization scar tissue release in the axilla Body Location left axilla Intensity/Depth Moderate Body Position Supine MFR of the pec minor and subscapularis Body Location left pec minor and subscapularis Comments pt tolerated MFR well, her ER is almost full in 60 degrees abduction Manual Techniques manual shoulder stretch into flexion Body Location left shoulder Comments with pin and stretch PT-OP-T Assessment and Plan Start: 02/18/21 14:02 Freq: Status: Active Protocol: Document 04/13/21 09:05 [facility] (Rec: 04/13/21 10:02 [facility] [id number]) Physical Therapy Assessment Goals swelling left axilla and hand with axillary cording Impairment lymphedema left UE in axilla with axillary cording from axilla to midway down inside left upper arm and evident in left hand Prison Goal (LTG) Patient to demonstrate good understanding of lymphedema precautions and management to include skin care, self manual lymphatic drainage, sequential lymphedema exercises, and obtain appropriate compression garment(s) 03/25/21: goal progress, patient wearing compression sleeve, doing some self massage. Encouraged increased viewing of [employer] videos. as of 04/13/21 pt is wearing compression garmets and is feeling much reduced swelling, she understands lymphedema precautions LTG Duration 04/15/21 improve postural habits to decrease strain on the left shoulder Impairment forward shoulder posture with pec minor and scar tissue tightness Scientist/Engineer Goal (LTG) Kathya is able to improve her posture with stretches and manual therapy techniques decreasing tightness of the pec minor musculature. 04/13/21: good goal progress LTG Duration 04/15/21 Improve full painfree AROM of the left shoulder Impairment Decreased shoulder AROM Scientist/Engineer Goal (LTG) Kathya demonstrates an improvement with AROM of the left shoulder witout upper trapezius substitution as of 04/13/21 there is decreased upper trapezius substitution, shoulder flexion to 165, abduction to 120, ER to 75 LTG Duration 04/15/21 Kathya reports overall decreased c/o left sided shoulder pain Impairment Left sided shoulder pain that radiates from the shoulder to the medial wrist and creates moderate difficulty with periodontist, carrying a shopping bag or having any pressure through her shoulder. She also has pain sleeping on her left shoulder at night Short Term Goal (STG) Kathya no longer complains of radiating symptoms down her left arm. goal met STG Duration 03/16/21 Scientist/Engineer Goal (LTG) Kathya reports a overall reduction in left shoulder pain and is able to sleep on her left side as well as reports mild difficulty with periodontist. 04/13/21: good goal progress LTG Duration 04/15/21 Assessment Summary Assessment Kathya is doing much better with shoulder ROM, she is still limited with end range flexion and the only place she feels the stretch is in the axilla. She will benefit from continued PT to work on the axillary cording and promote full shoulder ROM Physical Therapy Plan Frequency and Duration Frequency of Treatment 2x/Week Duration of Treatment 8 weeks Plan of Care Start Date 04/13/21 Plan of Care End Date 06/11/21 Therapeutic Interventions Therapeutic Interventions Home Exercise Program, Lymphedema Management,Manual Therapy,Neuromuscular Re- education,Self-Care/Home Management,Soft Tissue Mobilization,Therapeutic Exercises Next Visit Focus/Plan Next Note Type Treatment Note Next Visit Plan Continue working on axillary cording and progressing full shoulder ROM, postural exercises, breathing, ROM exercises
--- NOTE | 2021-04-13 10:03 | PT.OPPOC ---
Physical, Occupational & Speech Therapy At [facility] Current Diagnoses Personal history of malignant neoplasm of breast (04/13/21) Visit Care Team Role Provider Type Marilia Martinez MD Attending Provider Non-Staff Primary Care Provider Referring Provider Specialty: Internal Medicine Address: [address] [place] [address], [id number] Phone: Email: Plan Of Care PT-OP-T Assessment and Plan Start: 02/18/21 14:02 Freq: Status: Active Protocol: Document 04/13/21 09:05 [facility] (Rec: 04/13/21 10:02 [facility] [id number]) Physical Therapy Assessment Goals swelling left axilla and hand with axillary cording Impairment lymphedema left UE in axilla with axillary cording from axilla to midway down inside left upper arm and evident in left hand Senior Living Goal (LTG) Patient to demonstrate good understanding of lymphedema precautions and management to include skin care, self manual lymphatic drainage, sequential lymphedema exercises, and obtain appropriate compression garment(s) 03/25/21: goal progress, patient wearing compression sleeve, doing some self massage. Encouraged increased viewing of [employer] videos. as of 04/13/21 pt is wearing compression garments and is feeling much reduced swelling, she understands lymphedema precautions LTG Duration 04/15/21 improve postural habits to decrease strain on the left shoulder Impairment forward shoulder posture with pec minor and scar tissue tightness Senior Living Goal (LTG) Kathya is able to improve her posture with stretches and manual therapy techniques decreasing tightness of the pec minor musculature. 04/13/21: good goal progress LTG Duration 04/15/21 Improve full painfree AROM of the left shoulder Impairment Decreased shoulder AROM Business Strategist Goal (LTG) Kathya demonstrates an improvement with AROM of the left shoulder without upper trapezius substitution as of 04/13/21 there is decreased upper trapezius substitution, shoulder flexion to 165, abduction to 120, ER to 75 LTG Duration 04/15/21 Kathya reports overall decreased c/o left sided shoulder pain Impairment Left sided shoulder pain that radiates from the shoulder to the medial wrist and creates moderate difficulty with die presser, carrying a shopping bag or having any pressure through her shoulder. She also has pain sleeping on her left shoulder at night Short Term Goal (STG) Kathya no longer complains of radiating symptoms down her left arm. goal met STG Duration 03/16/21 Business Strategist Goal (LTG) Kathya reports a overall reduction in left shoulder pain and is able to sleep on her left side as well as reports mild difficulty with die presser. 04/13/21: good goal progress LTG Duration 04/15/21 Assessment Summary Assessment Kathya is doing much better with shoulder ROM, she is still limited with end range flexion and the only place she feels the stretch is in the axilla. She will benefit from continued PT to work on the axillary cording and promote full shoulder ROM Physical Therapy Plan Frequency and Duration Frequency of Treatment 2x/Week Duration of Treatment 8 weeks Plan of Care Start Date 04/13/21 Plan of Care End Date 06/11/21 Therapeutic Interventions Therapeutic Interventions Home Exercise Program, Lymphedema Management,Manual Therapy,Neuromuscular Re- education,Self-Care/Home Management,Soft Tissue Mobilization,Therapeutic Exercises Next Visit Focus/Plan Next Note Type Treatment Note Next Visit Plan Continue working on axillary cording and progressing full shoulder ROM, postural exercises, breathing, ROM exercises Plan of Care Dates Plan of Care Start Date 04/13/21 Plan of Care End Date 06/11/21 Electronically Signed by: Raquel Biswas, PT 04/13/21 1003 Please Sign and Return: I have reviewed this Plan of Care and certify that the skilled therapy services above are required to meet the patient?s needs. Physician Signature Date Printed Name and Credentials Clinical Instructor Signature Printed Name and Credentials
--- NOTE | 2021-06-03 17:27 | PT.OTN ---
Current Diagnoses Personal history of malignant neoplasm of breast (06/03/21) Physical Therapy Treatment Note PT-OP-A Visit Information Start: 02/18/21 14:02 Freq: Status: Active Protocol: Document 06/03/21 15:15 [facility] (Rec: 06/03/21 17:23 [facility] [id number]) Out-Patient Physical Therapy Visit Information Visit Information Visit Type Treatment Note Visit Start Time 14:30 Visit Stop Time 15:15 Total Visit Minutes 45 Visit Number 15 PT-OP-B Current Condition Start: 02/18/21 14:02 Freq: Status: Active Protocol: Document 03/08/21 15:15 [facility] (Rec: 03/08/21 16:22 [facility]AK [id number]) Current Condition History of Current Condition Onset Date date of surgery 12/14/20 Current Complaints Decreased ROM L shoulder, pain History of Current Condition 55 year old female s/p left full mastectomy at [facility] with axial node dissections level 1 -2 and thoracic. Kathya reports she does not currently have any swelling into her arm but does report some swelling into the left axilla. She has pain from the shoulder to her elbow, leaning onto her elbow increases her pain, she is unable to sleep on the left side. Today was her first day of chemotherapy at [facility]. She will be on chemo for 7 months. Pt reports at [facility] she had the lympha procedure where they do microscopic bypasses to make drainage systems to decrease chances of lymphadema. She also has a highway painter put in for eventual breast reconstruction. PT-OP-C Subjective Start: 02/18/21 14:02 Freq: Status: Active Protocol: Document 06/03/21 15:15 [facility] (Rec: 06/03/21 16:57 [facility] [id number]) OP-PT Subjective Patient Comments Patient Comments today was her last day of chemo, pt hasn't been able to do much of her execises as her whole family had covid. She feels overall she is doing well with her shoulder. She is still the most restricted in the axilla region from the cording but overall it is improved. Today is Kathya's last scheduled visit in PT Patient Reported Progress Improving PT-OP-J Posture/Palpation/Skin Start: 02/18/21 14:02 Freq: Status: Active Protocol: Document 02/18/21 14:45 [facility] (Rec: 02/18/21 18:01 [facility] [id number]) Posture Evaluation Position Sitting Shoulder Posture (L) Rounded,(L) Forward Comments Posture Comments pt has visable rounded shoulder on the left with tightness in her upper trapezius. She reports she finds herself rounding her shoulders as the highway painter that was put in on her left side was painful and if she rounded her shoulders it would take off the pain. She notes the pain from the highway painter is not as severe now so she thinks it has become a habit. Palpation Assessment Location left upper trapezius Palpation Location left upper trapezius Palpation Findings Soft Tissue Tightness,Spasm, Muscle Guarding left pec minor Palpation Location left pec minor Palpation Findings Soft Tissue Tightness,Muscle Guarding PT-OP-K Range of Motion Start: 02/18/21 14:02 Freq: Status: Active Protocol: Document 02/18/21 14:45 [facility] (Rec: 02/18/21 15:15 [facility] [id number]) Shoulder Goniometric Range of Motion Shoulder Left Shoulder ROM WFL No Testing Position Standing Flexion 115 Abduction 85 External Rotation at 90 degrees 25 Abduction External Rotation at 45 degrees 30 Abduction Internal Rotation Behind Back (text) T12 Comments These measurements are all AROM PROM is as follows: flexion 130, abduction to 130, ER to 35, IR to 45 with elbow at 45 degrees abduction Shoulder ROM Limitations Shoulder ROM Limitations Soft Tissue Tightness,Pain Comments Improved ROM with proper shoulder position and PROM vs AROM PT-OP-M Strength Start: 02/18/21 14:02 Freq: Status: Active Protocol: Document 02/18/21 14:45 [facility] (Rec: 02/18/21 18:29 [facility] [id number]) Shoulder Strength Shoulder Manual Muscle Testing Left Flexion 3 Fair Abduction (C5) 3 Fair External Rotation 5 Normal Internal Rotation 5 Normal Comments pt denies pain to resisted shoulder ER/IR, pain limits shoulder flexion and abduction for MMT PT-OP-N Lymphedema Start: 02/22/21 16:42 Freq: Status: Active Protocol: Document 03/08/21 15:15 [facility] (Rec: 03/08/21 16:22 [facility] [id number]) Lymphedema Measurements Upper Extremity Circumference Measurements Left Affected MCP 18.7 cm Dorsum of Hand 16 cm Wrist 16.3 cm 10 cm From Wrist Crease 18.8 cm 15 cm From Wrist Crease 22.4 cm 20 cm From Wrist Crease 23.5 cm 25 cm From Wrist Crease 23.9 cm 30 cm From Wrist Crease 24.9 cm 35 cm From Wrist Crease 26.1 cm Axilla 38 cm PT-OP-Q Treatments Start: 02/18/21 14:02 Freq: Status: Active Protocol: Document 06/03/21 15:15 [facility] (Rec: 06/03/21 17:23 [facility] [id number]) Manual Therapy Treatment Soft Tissue Mobilization scar tissue release in the axilla Body Location left axilla Intensity/Depth Moderate Body Position Supine MFR of the pec minor and subscapularis Body Location left pec minor and subscapularis Comments pt tolerated MFR well, her ER is almost full in 60 degrees abduction axillary cording Mobilization Type Myofascial Release,Rolling, Sustained Pressure,Other Intensity/Depth Moderate Body Position Hooklying Comments suction Manual Techniques manual shoulder stretch into flexion Body Location left shoulder Comments with pin and stretch sidelying scapular mobilizations Comments with end range stretch of the shoulder, scapual prrtraction/ retraction PT-OP-T Assessment and Plan Start: 02/18/21 14:02 Freq: Status: Active Protocol: Document 06/03/21 15:15 [facility] (Rec: 06/03/21 17:23 [facility] [id number]) Physical Therapy Assessment Goals swelling left axilla and hand with axillary cording Impairment lymphedema left UE in axilla with axillary cording from axilla to midway down inside left upper arm and evident in left hand [facility] Goal (LTG) Patient to demonstrate good understanding of lymphedema precautions and management to include skin care, self manual lymphatic drainage, sequential lymphedema exercises, and obtain appropriate compression garment(s) 03/25/21: goal progress, patient wearing compression sleeve, doing some self massage. Encouraged increased viewing of [employer] videos. as of 04/13/21 pt is wearing compression garmets and is feeling much reduced swelling, she understands lymphedema precautions LTG Duration 04/15/21 improve postural habits to decrease strain on the left shoulder Impairment forward shoulder posture with pec minor and scar tissue tightness Claim Agent Goal (LTG) Kathya is able to improve her posture with stretches and manual therapy techniques decreasing tightness of the pec minor musculature. 04/13/21: good goal progress LTG Duration 04/15/21 Improve full painfree AROM of the left shoulder Impairment Decreased shoulder AROM [facility] Goal (LTG) Kathya demonstrates an improvement with AROM of the left shoulder witout upper trapezius substitution as of 04/13/21 there is decreased upper trapezius substitution, shoulder flexion to 165, abduction to 120, ER to 75 LTG Duration 04/15/21 Kathya reports overall decreased c/o left sided shoulder pain Impairment Left sided shoulder pain that radiates from the shoulder to the medial wrist and creates moderate difficulty with administrative underwriter, carrying a shopping bag or having any pressure through her shoulder. She also has pain sleeping on her left shoulder at night Short Term Goal (STG) Kathya no longer complains of radiating symptoms down her left arm. goal met STG Duration 03/16/21 [facility] Goal (LTG) Kathya reports a overall reduction in left shoulder pain and is able to sleep on her left side as well as reports mild difficulty with administrative underwriter. 04/13/21: good goal progress LTG Duration 04/15/21 Assessment Summary Assessment Kathya is doing much better with shoulder ROM, she is still limited with end range flexion and the only place she feels the stretch is in the axilla. Today was her last scheduled visit in PT and she is feeling like she will continue to work on her exercises independently. She will follow up should she need more PT once she has her recontrsuction surgery Physical Therapy Plan Discharge Physical Therapy Discharge Reasons Patient Request Discharge Comments pt is feeling independent with her HEP
== END 2022-05-10 11:32 | disposition home or self-care (01) ==
LOC: PHYS 15:15
PROVIDERS: PCP Internal Medicine; Referring Provider Internal Medicine; Visit Provider Internal Medicine
DX: Z85.3 Personal history of malignant neoplasm of breast (principal)
CPT/HCPCS: 97110; 97140; 97161; 97535

== ENCOUNTER → 2022-12-14 07:43 | Outpatient (CLI) | payer OTHER, SELFPAY ==
--- NOTE | 2022-12-14 | DI.MRI.S_ITS ---
PROCEDURE: MR LOWER LEG LT WO CON COMPARISON: [facility], CR, XR TIBIA FIBULA LEFT, 10/28/2022, 15:10. TECHNIQUE: Noncontrast coronal T1 spin echo and STIR; sagittal T1 spin echo with fat saturation and STIR; axial T1 spin echo and T2 fast spin echo with fat saturation through the left lower leg. INDICATIONS: Pain in left leg FINDINGS: Bones: Mild focal osseous edema is seen within the posterior aspect of the tibial shaft bilaterally, suspicious for acute stress reaction. No focal fracture line is seen. Mild subchondral edema is seen in the medial tibial plateau. Osseous structures otherwise normal in signal intensity. Soft tissues: Soft tissue edema is seen in the subcutaneous tissues anterior to the mid tibial shaft. The adjacent portion of the tibia is unremarkable. The lower leg musculature is normal in signal intensity and bulk. There is a moderate left knee effusion and moderate medial popliteal cyst. Mild soft tissue edema adjacent to the cyst is suspicious for prior cyst rupture. A small amount of fluid is seen tracking along the popliteus tendon sheath. There is suspected radial tearing at the posterior root attachment of the medial meniscus with mild extrusion of the meniscal body and cartilage loss in the medial femorotibial compartment. IMPRESSION: 1. Mild focal osseous edema within the proximal tibial shafts bilaterally, which is suspicious for acute stress reaction. No fracture line is seen to suggest stress fracture. 2. Focal subcutaneous soft tissue edema at the anterior aspect of the mid to distal yu is likely a mild soft tissue contusion. Adjacent portion of the tibia appears normal. 3. Suspected complex tearing of the medial meniscus including radial tearing of the posterior root attachment and cartilage loss in the medial femorotibial compartment. 4. Moderate left knee effusion. Moderate medial popliteal cyst with signs of prior cyst rupture. Approved by: Andrea Cunningham M.D. on 12/14/2022 at 16:29
--- NOTE | 2022-12-14 | DI.MRI.S_ITS ---
PROCEDURE: MR FEMUR LT WO CON INDICATIONS: Pain in left leg TECHNIQUE: Noncontrast coronal and sagittal T1 spin echo and STIR; axial T1 spin echo and T2 fast spin echo with fat saturation through the left femur. COMPARISON: [facility], CR, XR FEMUR 2+ VIEWS LEFT, 10/28/2022, 15:10. FINDINGS: Image quality: Excellent. Bones: The visualized bone marrow demonstrates normal signal on all sequences. The overlying cortex appears intact. No acute fractures lines or intra-osseous lesions. Focal cystic changes are seen at the anterior aspect of the left femoral neck, nonspecific but can be seen in the setting of femoroacetabular impingement. The hip is not well evaluated on this exam. Soft tissues: Mild distal gluteus medius and minimus tendinosis. Mild left proximal hamstring tendinosis. Moderate left knee effusion. A moderate medial popliteal cyst is seen with signs of prior cyst rupture. Suspected radial tear of the posterior root attachment of the medial meniscus, although the internal structures of the knee are not well evaluated on this exam that is tailored for evaluation of the femur. The scanned muscles demonstrate normal overall bulk and internal signal. No soft tissue masses are present. IMPRESSION: Approved by: Andrea Cunningham M.D. on 12/14/2022 at 12:40 1. No acute trabecular bone injury. The thigh musculature is normal in bulk and signal intensity. 2. Suspected radial tearing of the left medial meniscus, which is not well evaluated on this exam. Moderate left knee effusion. Moderate left medial popliteal cyst with signs of prior cyst rupture. Findings could be better evaluated on a dedicated MRI of the knee if indicated clinically. 3. Focal cystic changes in the anterior left femoral neck are nonspecific but can be seen in the setting of femoroacetabular impingement. 4. Mild distal left gluteus medius and minimus tendinosis. Mild left proximal hamstring tendinosis.
== END ==
PROVIDERS: PCP Internal Medicine; Referring Provider Registered Nurse; Visit Provider Registered Nurse
DX: M79.605 Pain in left leg (principal); M25.462 Effusion, left knee; M66.0 Rupture of popliteal cyst
CPT/HCPCS: 73718